=== PATIENT | female | born 1975 | race Caucasian/White ===

== ENCOUNTER 2016-04-03 15:28 | Emergency (ER) | payer BC ==
[~2016-04-03] VITALS: Ht 152.4 cm; Wt 79.0 kg
[~2016-04-03 15:28] MED LIST: ABIL5TAB6 PO; ALPR0.5T3 PO; DEXI30CA2 PO; ESZO3 PO; FAMO20TA2 PO; GABA600T PO; HYDR-3129 PO; METO50CR PO; MONT10TA2 PO; PRAZ2 PO; ROPI1TAB72 PO; VORT20TA PO
[2016-04-03 15:35] VITALS: BP 117/75; PULSE 87; RESP 16; TEMP 98.3; O2SAT 100
[2016-04-03] MEDS ORDERED: SODIUM CHLOR 0.9% 1000 ML INJ 1,000 ML IV ONE ×2 (15:54→17:00)
[2016-04-03] MEDS ORDERED: METOCLOPRAMIDE HCL 10 MG/2 ML VIAL IVP ONE (16:00)
[2016-04-03] MEDS ORDERED: SODIUM CHLORIDE 0.9% FLUSH 5 ML FLUSH IVF PRN (16:00)
[2016-04-03] MEDS ORDERED: DEXAMETHASONE SOD PHOS 20 MG/5 ML VIAL IV PUSH ONE (16:00)
[2016-04-03] MEDS ORDERED: KETOROLAC TROMETHAMINE 30 MG/ML (IVP) VIAL IV PUSH ONE (16:00)
[2016-04-03] MEDS ORDERED: FLUT50SP EACH NARE (16:16)
[2016-04-03] MEDS ORDERED: DICL1GEL7 TOPICAL (16:16)
[2016-04-03] MEDS ORDERED: METO50TA PO (16:16)
[2016-04-03] MEDS ORDERED: KETOC2%T TOPICAL (16:16)
[2016-04-03] MEDS ORDERED: PRAZ1CAP PO (16:16)
[2016-04-03] MEDS ORDERED: OMEP40CA2 PO (16:16)
[2016-04-03] MEDS ORDERED: BACL10TA PO (16:16)
[2016-04-03] MEDS ORDERED: AUGM875T PO (16:16)
[2016-04-03] MEDS ORDERED: MONT10TA4 PO (16:16)
[2016-04-03] MEDS ORDERED: HYDR-3115 PO (16:16)
[2016-04-03] MEDS ORDERED: ROPI1TAB72 PO (16:16)
[2016-04-03] MEDS ORDERED: ESZO3TAB4 PO (16:16)
[2016-04-03] MEDS ORDERED: MELO7.5T4 PO (16:16)
[2016-04-03] MEDS ORDERED: ALBUAER3 INH (16:16)
[2016-04-03] MEDS ORDERED: ALPR0.5T3 PO (16:16)
[2016-04-03] MEDS ORDERED: ADDE20 PO (16:16)
[2016-04-03] MEDS ORDERED: FLUO10CA5 PO (16:16)
[2016-04-03] MEDS ORDERED: GABA300C5 PO (16:16)
[2016-04-03] MEDS ORDERED: TRAZ100T4 PO (16:16)
[2016-04-03 16:17] VITALS: O2SAT 100
--- NOTE | 2016-04-03 16:17 | PD ---
HPI Chief Complaint: Headache Time Seen by Provider: 15:46 Travel History International Travel<30 days: No Contact w/Intl Traveler<30days: No Traveled to known affect area: No History of Present Illness HPI Patient is a 40-year-old female who presents to emergency room with multiple complaints. Patient reports that she has had a headache since May 19, 2008, reports that her headache has been worked up with MRIs and multiple imaging studies, reports that no one can tell her why she has a headache everyday. 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 Patient reports that she has exacerbation of a headache today, reports that the Vicodin did not help her, requests stronger pain medication at this time to help with her headache. Reports that her headache is typical for her headache exacerbations she has had in the past. Patient also reports that for the past 6 weeks, she has been sick. Patient reports that she has had cough and congestion, reports that her primary care doctor initially started her on a Z-Naveen, reports that the Z-Naveen didn't help her so she went to an urgent care center who put her on Augmentin. Patient reports that she has has complete full course of antibiotics, reports that she is still coughing and still feels congested. Patient with no fevers or chills at this time. Patient with no other sick contacts. Patient with no recent travels or trips. Patient also reporting that she is having increased nausea, vomiting and diarrhea for the past 6 weeks. Patient reports that she is unsure if her diarrhea started before or after her first course of antibiotics. Patient reports that she has had about 5-6 episodes of watery diarrhea per day. Patient denies any abdominal pain at this time. PFSH Past Medical History Hx Anticoagulant Therapy: No Arthritis: Yes (rheumatoid arthritis) Asthma: Yes Anxiety: Yes Depression: Yes Cancer: No Cardiovascular Problems: Yes (HTN) Diabetes: No Diminished Hearing: No Endocrine: No Genitourinary: No Hepatitis: No Hiatal Hernia: Yes (REPAIRED) Hypertension: Yes Immune Disorder: Yes (RA) Musculoskeletal: Yes (RA, NECK/ BACK ISSUES, FIBROMYALGIA) Neurologic: Yes (HEADACHES, TRANSIENT TRAVELING NUMBNESS) Psychiatric: Yes (DEPRESSION, ANXIETY, CLAUSTRAPHOBIA) Reproductive: No Respiratory: Yes (ASTHMA (YOUTH)) Thyroid Disease: No ?: Not Tubal Ligation: Yes Past Surgical History Abdominal Surgery: Yes (GASTRIC BYPASS) AICD: No Cholecystectomy: Yes Gynecologic Surgery: Yes (LAP TUBAL) Joint Replacement: No Pacemaker: No Other Surgery: Yes (EXPLORATORY LAP) Social History Alcohol Use: No Tobacco Use: No Substance Use: No Allergies-Medications (Allergen,Severity, Reaction): Coded Allergies: Levaquin (Unverified Allergy, Severe, Chest Pain, 04/03/16) Reported Meds & Prescriptions Reported Meds & Active Scripts Active Reported Prazosin (Prazosin HCl) 1 Mg Cap 6 Mg PO HS Diclofenac Topical 1% Gel 1 Applic TOPICAL QID Adderall (Amphetamine-Dextroamphetamine) 20 Mg Tab 20 Mg PO DAILY Avoid late evening doses. Space doses at least 4 to 6 hours if more than once/day dosing. Montelukast (Montelukast Sodium) 10 Mg Tab 10 Mg PO HS Nizoral Topical Shampoo (Ketoconazole) 2% Sham 1 Applic TOPICAL DAILY Apply to scalp Baclofen 10 Mg Tab 10 Mg PO BID Trazodone (Trazodone HCl) 100 Mg Tab 100 Mg PO HS Omeprazole 40 Mg Cap 40 Mg PO DAILY Metoprolol Tartrate 50 Mg Tab 50 Mg PO BID Meloxicam 7.5 Mg Tab 7.5 Mg PO DAILY Fluoxetine (Fluoxetine HCl) 10 Mg Cap 30 Mg PO DAILY Gabapentin 300 Mg Cap 900 Mg PO TID Fluticasone Nasal [place] 50 Mcg/Act Naspr 50 Mcg EACH NARE BID 50 mcg/spray Proair Hfa 8.5 GM Inh (Albuterol Sulfate) 90 Mcg/Act Aer 1 Puff INH Q4H PRN 108 mcg/actuation Requip (Ropinirole) 1 Mg Tab 1 Mg PO HS Augmentin (Amoxicillin-Clavulanate) 875-125 mg Tab 875 Mg PO BID not for use in CrCl <30 ml/min. Vicodin Hp (Hydrocodone-Acetaminophen) 10-300 Tab 1 Tab PO Q4H PRN Lunesta (Eszopiclone) 3 Mg Tab 6 Mg PO HS PRN Alprazolam 0.5 Mg Tab 0.5 Mg PO Q8H PRN [place] 10-325 mg (Hydrocodone-Acetaminophen 10-325 mg) Acetaminophen 325/10 Hydrocodone Tab 1 Tab PO Q4H PRN Brintellix (Vortioxetine HBr) 20 Mg Tab 1 Tab PO HS Singulair (Montelukast Sodium) 10 Mg Tab 10 Mg PO HS Famotidine 20 Mg Tab 20 Mg PO BID Requip 1 mg (Ropinirole HCl) 1 Mg Tab 1 Mg PO BID Prazosin Hcl (Prazosin HCl) 2 Mg Cap 6 Mg PO HS Metoprolol Succinate ER 50 mg (Metoprolol Succinate) 50 Mg Tab 1 Tab PO HS Gabapentin 600 Mg Tab 900 Mg PO HS Review of Systems General / Constitutional: No: Fever Eyes: No: Visual changes HENT: Positive: Headaches Cardiovascular: No: Chest Pain or Discomfort Respiratory: Positive: Cough, No: Shortness of Breath Gastrointestinal: Positive: Nausea, Vomiting, Diarrhea, No: Abdominal Pain Genitourinary: No: Dysuria Musculoskeletal: No: Pain Skin: No Rash Neurologic: No: Weakness Psychiatric: No: Depression Endocrine: No: Polydipsia Hematologic/Lymphatic: No: Easy Bruising Physical Exam Narrative GENERAL: nad, nontoxic SKIN: Warm and dry. HEAD: Atraumatic. Normocephalic. EYES: Pupils equal and round. No scleral icterus. No injection or drainage. ENT: No nasal bleeding or discharge. Mucous membranes pink and moist. NECK: Trachea midline. No JVD. CARDIOVASCULAR: Regular rate and rhythm. No murmur appreciated. RESPIRATORY: No accessory muscle use. Clear to auscultation. Breath sounds equal bilaterally. GASTROINTESTINAL: Abdomen soft, non-tender, nondistended. Hepatic and splenic margins not palpable. MUSCULOSKELETAL: No obvious deformities. No clubbing. No cyanosis. No edema. NEUROLOGICAL: Awake and alert. No obvious cranial nerve deficits. Motor grossly within normal limits. Normal speech. CN 2-12 with no obvious cn deficits PSYCHIATRIC: Appropriate mood and affect; insight and judgment normal. Data Data Last Documented VS Vital Signs Date Time Temp Pulse Resp B/P Pulse Ox O2 Delivery O2 Flow Rate FiO2 04/03/16 16:17 100 Room Air 04/03/16 15:35 98.3 87 16 117/75 Orders Complete Blood Count With Diff (04/03/16 15:54) Comprehensive Metabolic Panel (04/03/16 15:54) Prothrombin Time / Inr (Pt) (04/03/16 15:54) Act Partial Throm Time (Ptt) (04/03/16 15:54) Iv Access Insert/Monitor (04/03/16 15:54) Oximetry (04/03/16 15:54) Sodium Chloride 0.9% Flush (Ns Flush) (04/03/16 16:00) Metoclopramide Inj (Reglan Inj) (04/03/16 16:00) Sodium Chlor 0.9% 1000 Ml Inj (Ns 1000 M (04/03/16 15:54) Urinalysis - C+S If Indicated (04/03/16 15:54) Ed Urine Pregnancytest Poc (04/03/16 15:54) Dexamethasone Inj (Decadron Inj) (04/03/16 16:00) Ketorolac Inj (Toradol Inj) (04/03/16 16:00) C Diff Toxin Pcr (04/03/16 15:54) Chest, Single Ap (04/03/16 16:05) Sodium Chlor 0.9% 1000 Ml Inj (Ns 1000 M (04/03/16 17:00) Labs Laboratory Tests Test 04/03/16 15:35 White Blood Count 4.3 TH/MM3 Red Blood Count 3.73 MIL/MM3 Hemoglobin 12.3 GM/DL Hematocrit 37.2 % Mean Corpuscular Volume 99.9 FL Mean Corpuscular Hemoglobin 33.0 PG Mean Corpuscular Hemoglobin 33.0 % Concent Red Cell Distribution Width 14.2 % Platelet Count 228 TH/MM3 Mean Platelet Volume 8.7 FL Neutrophils (%) (Auto) 65.1 % Lymphocytes (%) (Auto) 21.3 % Monocytes (%) (Auto) 7.5 % Eosinophils (%) (Auto) 4.8 % Basophils (%) (Auto) 1.3 % Neutrophils # (Auto) 2.8 TH/MM3 Lymphocytes # (Auto) 0.9 TH/MM3 Monocytes # (Auto) 0.3 TH/MM3 Eosinophils # (Auto) 0.2 TH/MM3 Basophils # (Auto) 0.1 TH/MM3 CBC Comment DIFF FINAL Differential Comment Prothrombin Time 12.0 SEC Prothromb Time International 1.1 RATIO Ratio Activated Partial 26.9 SEC Thromboplast Time Urine Collection Type CLEAN CATCH Urine Color YELLOW Urine Turbidity CLEAR Urine pH 5.5 Urine Specific [place] GREATER THAN 1.030 Urine Protein TRACE mg/dL Urine Glucose (UA) NEG mg/dL Urine Ketones TRACE mg/dL Urine Occult Blood NEG Urine Nitrite NEG Urine Bilirubin NEG Urine Leukocyte Esterase NEG Urine WBC 0-2 /hpf Urine Squamous Epithelial 0-5 /hpf Cells Microscopic Urinalysis Comment CULT NOT INDICATED Sodium Level 142 MEQ/L Potassium Level 3.9 MEQ/L Chloride Level 110 MEQ/L Carbon Dioxide Level 24.0 MEQ/L Anion Gap 8 MEQ/L Blood Urea Nitrogen 17 MG/DL Creatinine 0.84 MG/DL Estimat Glomerular Filtration 76 ML/MIN Rate Random Glucose 99 MG/DL Calcium Level 8.4 MG/DL Total Bilirubin 0.3 MG/DL Aspartate Amino Transf 12 U/L (AST/SGOT) Alanine Aminotransferase 34 U/L (ALT/SGPT) Alkaline Phosphatase 83 U/L Total Protein 7.0 GM/DL Albumin 3.5 GM/DL MDM Medical Decision Making Medical Screen Exam Complete: Yes Emergency Medical Condition: Yes Interpretation(s) Vital Signs Date Time Temp Pulse Resp B/P Pulse Ox O2 Delivery O2 Flow Rate FiO2 04/03/16 15:35 98.3 87 16 117/75 100 Differential Diagnosis Migraine headache, pneumonia, C. difficile colitis, electrolyte abnormalities, gastritis, gastroenteritis, peptic ulcer disease, bronchitis Narrative Course Patient is a 40-year-old female who presents to emergency room with multiple complaints. 1) Patient reports that she has had a headache since May 19, 2008. Patient reports that she takes Vicodin 10 mg for her headaches which is prescribed by her painting supervisor. Patient reports that she continues to have a headache, reports that headache is a little worse today as she has been feeling nauseous and has been vomiting and has been having diarrhea for the past 6 weeks. Migraine cocktail ordered for patient. Patient with no cranial nerve deficits at this time, does not require any imaging of her brain as she has had similar headaches in the past. Patient reports that she has had a full workup in the past including MRI for brain for her symptoms which her studies were all benign 2) cough congestion for the past 6 weeks. Patient reports that for the past 6 weeks, she has had increased cough congestion and postnasal drip. Reports that she has been on a series of antibiotics, reports that she completed a Z-Naveen prescribed by her primary care doctor and then completed a course of Augmentin prescribed by urgent care center. Patient reports that she continues to have increased cough and congestion. With no fevers or chills. X-ray ordered to evaluate for possible pneumonia 3) patient with nausea vomiting and diarrhea for the past 6 weeks. Patient reports that she has had increased diarrhea, she thinks prior to starting her Z- Naveen, reports that she is unsure. Patient reports that she has around 5-6 episodes of diarrhea per day. Denies any abdominal pain at this time. Labs as well as IV fluids, nausea medications ordered. C. difficile culture also ordered for possible C. difficile colitis. With no abdominal pain at this time , will hydrate patient and monitor her. CBC WBC 4.3 Hemoglobin 12.3 Hematocrit 37.2 Platelets 223 BMP Sodium 145 Chloride 110 Potassium 3.9 Carbon dioxide 24 BUN 17 Creatinine 0.84 Chest x-ray: No acute findings UA with trace ketones, negative for leuk esterase, negative for nitrite Patient reevaluated, patient reports that she is feeling much better. Patient with near resolution of her headache at this time, denies nausea or vomiting. Denies soft, nontender, nondistended, no peritoneal signs. Reviewed all labs and studies with patient in detail. Discussed with patient signs and symptoms of when to return to the emergency room. Patient will follow-up with a primary care doctor as well as her specialist. Diagnosis Primary Impression: Chronic headache Qualified Code: R51 - Chronic intractable headache, unspecified headache type Additional Impressions: Nausea vomiting and diarrhea Chronic bronchitis Qualified Code: J41.0 - Simple chronic bronchitis Patient Instructions: General Instructions Additional Instructions: Please follow-up with your primary care doctor as soon as possible Please follow-up with all cultures from today Please make sure you maintain hydration and drink plenty of fluids Return to emergency room if symptoms progress or worsen Disposition: 01 DISCHARGE HOME Condition: Stable Margo Haque DO Apr 03, 2016 16:17
[2016-04-03 16:49] LABS: AUTOMATED NEUTROPHIL # 2.8 TH/MM3 (1.8-7.7); BASOPHIL # 0.1 TH/MM3 (0-0.2); BASOPHIL % 1.3 % (0.0-2.0); EOSINOPHIL # 0.2 TH/MM3 (0-0.4); EOSINOPHIL % 4.8 % (0.0-4.0); HEMATOCRIT 37.2 % (35.0-46.0); HEMO FLAGS DIFF FINAL; LYMPH % 21.3 % (9.0-44.0); LYMPHOCYTE # 0.9 TH/MM3 (1.0-4.8); MEAN CELL VOLUME 99.9 FL (80.0-100.0); MONO % 7.5 % (0.0-8.0); NEUT % 65.1 % (16.0-70.0); PLATELET COUNT 228 TH/MM3 (150-450); RED BLOOD COUNT 3.73 MIL/MM3 (4.00-5.30); RED CELL DISTRIBUTION WIDTH 14.2 % (11.6-17.2); WHITE BLOOD COUNT 4.3 TH/MM3 (4.0-11.0)
[2016-04-03 16:50] LABS: BLOOD, URINE NEG (NEG); GLUCOSE,URINE NEG (NEG); KETONE, URINE TRACE mg/dL (NEG); NITRITE,URINE NEG (NEG); PH, URINE 5.5 (5.0-8.5)
[2016-04-03 16:54] LABS: COMMENT (UR) CULT NOT INDICATED; CULTURE IF INDICATED CULT NOT INDICATED; METHOD OF COLLECTION CLEAN CATCH; SQUAMOUS EPITHELIAL CELL URINE 0-5 /hpf (0-5); URINE COLOR YELLOW (YELLW/STRAW); WBC, URINE 0-2 /hpf (0-5)
[2016-04-03 16:57] LABS: CHLORIDE 110 MEQ/L (98-107); POTASSIUM 3.9 MEQ/L (3.5-5.1); SODIUM (NA) 142 MEQ/L (136-145)
[2016-04-03 17:00] LABS: ANION GAP 8 MEQ/L (5-15)
[2016-04-03 17:01] LABS: BLOOD UREA NITROGEN 17 MG/DL (7-18)
[2016-04-03 17:02] LABS: APTT (PATIENT) 26.9 SEC (24.3-30.1); INTERNATIONAL NORMALIZED RATIO 1.1 RATIO
[2016-04-03 17:03] LABS: ALT (GPT) 34 U/L (10-53)
[2016-04-03 17:04] LABS: AST (GOT) 12 U/L (15-37); GLOMERULAR FILTRATION RATE 76 ML/MIN (>89)
[2016-04-03 17:05] LABS: TOTAL BILIRUBIN ADULT 0.3 MG/DL (0.2-1.0)
[2016-04-03 17:06] LABS: ALKALINE PHOSPHATASE 83 U/L (45-117)
--- NOTE | 2016-04-03 17:11 | RADHPO ---
EXAM DATE/TIME: 04/03/2016 16:42 [facility] COMPARISON: No previous studies available for comparison. INDICATIONS : Cough and congestion. Shortness of breath. MEDICAL HISTORY : None. SURGICAL HISTORY : None. ENCOUNTER: Initial ACUITY: 1 month PAIN SCORE: 3/10 LOCATION: Bilateral chest FINDINGS: A single view of the chest demonstrates the lungs to be symmetrically aerated without evidence of mas s, infiltrate or effusion. The cardiomediastinal contours are unremarkable. Osseous structures are intact. CONCLUSION: No acute disease. Dragan Peterson MD on April 03, 2016 at 17:09 Board Certified Radiologist. This report was verified electronically.
[2016-04-03 17:46] VITALS: BP 112/67; PULSE 68; RESP 15; O2SAT 100
[2016-04-03 17:53] VITALS: RESP 15
== END 2016-04-03 18:36 | disposition home or self-care (01) ==
LOC: PHED 15:28
DX: R51 Headache (principal); G89.29 Other chronic pain; R11.2 Nausea with vomiting, unspecified; R19.7 Diarrhea, unspecified; R41.0 Disorientation, unspecified; J45.909 Unspecified asthma, uncomplicated; I10 Essential (primary) hypertension
CPT/HCPCS: 71010; 80053; 81001; 84703; 85025; 85610; 85730; 96361; 96374; 96375; 99284; J1100; J1885; J2765; J7030

== ENCOUNTER 2016-04-06 09:08 | Emergency (ER) | payer BC ==
[~2016-04-06] VITALS: Ht 152.4 cm; Wt 81.7 kg
[~2016-04-06 09:08] MED LIST changes: +ADDE20 PO; +ALBUAER3 INH; +AUGM875T PO; +BACL10TA PO; +DICL1GEL7 TOPICAL; +ESZO3TAB4 PO; +FLUO10CA5 PO; +FLUT50SP EACH NARE; +GABA300C5 PO; +HYDR-3115 PO; +KETOC2%T TOPICAL; +MELO7.5T4 PO; +METO50TA PO; +MONT10TA4 PO; +OMEP40CA2 PO; +PRAZ1CAP PO; +TRAZ100T4 PO
[2016-04-06 09:19] VITALS: BP 143/75; PULSE 70; RESP 18; TEMP 97.9; O2SAT 100
[2016-04-06] MEDS ORDERED: FAMO20TA2 PO (09:41)
[2016-04-06] MEDS ORDERED: SODIUM CHLOR 0.9% 1000 ML INJ 1,000 ML IV SCH ×2 (09:54)
[2016-04-06] MEDS ORDERED: SODIUM CHLORIDE 0.9% FLUSH 5 ML FLUSH IVF PRN (10:00)
[2016-04-06] MEDS ORDERED: HYDROmorphone HCL PF 2 MG/ML VIAL IVS ONE (10:00)
[2016-04-06] MEDS ORDERED: ONDANSETRON HCL 4 MG/2 ML VIAL IVP ONE (10:00)
--- NOTE | 2016-04-06 10:03 | PD ---
HPI Chief Complaint: Abdominal Pain Time Seen by Provider: 09:30 Travel History International Travel<30 days: No Contact w/Intl Traveler<30days: No Traveled to known affect area: No History of Present Illness HPI This 40-year-old female complaining of diarrhea and bilateral flank pain. She says she hasn't felt well for about 7 weeks. She's been having some upper respiratory symptoms. She initially went to her primary care doctor and was given a prescription for Zithromax in mid February. She did not get any better and subsequently went to a walk-in clinic where she was given prescription for amoxicillin which she is due to finish tomorrow. She has been having diarrhea she says for the past week or so. She been using Imodium. She gives temporary relief. As the diarrhea has been very watery. She has a history of gastric bypass, cholecystectomy, adhesions and has been diagnosed with an ulcer. sHe has chronic pain and takes meloxicam and narcotics. He says he been having a headache. She has a history of frequent headaches. she was seen in the emergency department last Tuesday [facility] Past Medical History Hx Anticoagulant Therapy: No Arthritis: Yes (rheumatoid arthritis) Asthma: Yes Anxiety: Yes Depression: Yes Cancer: No Cardiovascular Problems: Yes (HTN) Diabetes: No Diminished Hearing: No Endocrine: No Gastrointestinal Disorders: Yes (N & V, BOWEL CHANGES, S/P GASTRIC BYPASS) Genitourinary: No Hepatitis: No Hiatal Hernia: Yes (REPAIRED) Hypertension: Yes Immune Disorder: Yes (RA) Musculoskeletal: Yes (RA, NECK/ BACK ISSUES, FIBROMYALGIA) Neurologic: Yes (HEADACHES, TRANSIENT TRAVELING NUMBNESS) Psychiatric: Yes (DEPRESSION, ANXIETY, CLAUSTRAPHOBIA) Reproductive: No Respiratory: Yes (ASTHMA (YOUTH)) Thyroid Disease: No Influenza Vaccination: No ?: Not LMP: LMP 03/21/2016 Tubal Ligation: Yes Past Surgical History Abdominal Surgery: Yes (GASTRIC BYPASS) AICD: No Cholecystectomy: Yes Gynecologic Surgery: Yes (LAP TUBAL) Joint Replacement: No Pacemaker: No Other Surgery: Yes (EXPLORATORY LAP) Social History Alcohol Use: No Tobacco Use: No Substance Use: No Allergies-Medications (Allergen,Severity, Reaction): Coded Allergies: Levaquin (Unverified Allergy, Severe, Chest Pain, 04/06/16) Reported Meds & Prescriptions Reported Meds & Active Scripts Active Reported Famotidine 20 Mg Tab 20 Mg PO BID Prazosin (Prazosin HCl) 1 Mg Cap 6 Mg PO HS Adderall (Amphetamine-Dextroamphetamine) 20 Mg Tab 20 Mg PO DAILY Avoid late evening doses. Space doses at least 4 to 6 hours if more than once/day dosing. Montelukast (Montelukast Sodium) 10 Mg Tab 10 Mg PO HS Nizoral Topical Shampoo (Ketoconazole) 2% Sham 1 Applic TOPICAL DAILY Apply to scalp Baclofen 10 Mg Tab 10 Mg PO BID Trazodone (Trazodone HCl) 100 Mg Tab 100 Mg PO HS Omeprazole 40 Mg Cap 40 Mg PO DAILY Metoprolol Tartrate 50 Mg Tab 50 Mg PO BID Meloxicam 7.5 Mg Tab 7.5 Mg PO DAILY Fluoxetine (Fluoxetine HCl) 10 Mg Cap 30 Mg PO DAILY Gabapentin 300 Mg Cap 900 Mg PO TID Fluticasone Nasal [place] 50 Mcg/Act Naspr 50 Mcg EACH NARE BID 50 mcg/spray Proair Hfa 8.5 GM Inh (Albuterol Sulfate) 90 Mcg/Act Aer 1 Puff INH Q4H PRN 108 mcg/actuation Requip (Ropinirole) 1 Mg Tab 1 Mg PO HS Augmentin (Amoxicillin-Clavulanate) 875-125 mg Tab 875 Mg PO BID not for use in CrCl <30 ml/min. Vicodin Hp (Hydrocodone-Acetaminophen) 10-300 Tab 1 Tab PO Q4H PRN Lunesta (Eszopiclone) 3 Mg Tab 6 Mg PO HS PRN Alprazolam 0.5 Mg Tab 0.5 Mg PO Q8H PRN Review of Systems General / Constitutional: No: Fever, Chills Eyes: No: Diploplia, Blurred Vision HENT: No: Headaches, Vertigo Cardiovascular: No: Chest Pain or Discomfort, Palpitations Respiratory: No: Cough, Shortness of Breath Gastrointestinal: Positive: Nausea, Diarrhea Genitourinary: No: Urgency, Frequency Musculoskeletal: No: Myalgias, Arthralgias Skin: No Rash, No Itching Neurologic: No: Weakness Endocrine: No: Heat Intolerance, Cold Intolerance Hematologic/Lymphatic: No: Easy Bruising Physical Exam Narrative GENERAL: Well-developed female SKIN: Warm and dry. HEAD: Atraumatic. Normocephalic. EYES: Pupils equal and round. No scleral icterus. No injection or drainage. ENT: No nasal bleeding or discharge. Mucous membranes pink and moist. NECK: Trachea midline. No JVD. CARDIOVASCULAR: Regular rate and rhythm. No murmur appreciated. RESPIRATORY: No accessory muscle use. Clear to auscultation. Breath sounds equal bilaterally. GASTROINTESTINAL: Abdomen soft, non-tender, nondistended. Hepatic and splenic margins not palpable. Bowel sounds are active MUSCULOSKELETAL: No obvious deformities. No clubbing. No cyanosis. No edema. NEUROLOGICAL: Awake and alert. No obvious cranial nerve deficits. Motor grossly within normal limits. Normal speech. PSYCHIATRIC: Appropriate mood and affect; insight and judgment normal. Data Data Last Documented VS Vital Signs Date Time Temp Pulse Resp B/P Pulse Ox O2 Delivery O2 Flow Rate FiO2 04/06/16 10:21 64 20 128/67 97 Room Air 04/06/16 09:19 97.9 Orders Complete Blood Count With Diff (04/06/16 09:54) Comprehensive Metabolic Panel (04/06/16 09:54) Lipase (04/06/16 09:54) Urinalysis - C+S If Indicated (04/06/16 09:54) Ct Abd/Pel W Iv Contrast(Rout) (04/06/16 09:54) Iv Access Insert/Monitor (04/06/16 09:54) Ecg Monitoring (04/06/16 09:54) Oximetry (04/06/16 09:54) Hydromorphone Pf Inj (Dilaudid Pf Inj) (04/06/16 10:00) Ondansetron Inj (Zofran Inj) (04/06/16 10:00) Sodium Chlor 0.9% 1000 Ml Inj (Ns 1000 M (04/06/16 09:54) Sodium Chlor 0.9% 1000 Ml Inj (Ns 1000 M (04/06/16 09:54) Sodium Chloride 0.9% Flush (Ns Flush) (04/06/16 10:00) Rotavirus Ag Detection (Stool) (04/06/16 09:54) C Diff Toxin Pcr (04/06/16 09:54) Oral Contrast - Adult (04/06/16 10:13) Diatrizoate Liq ( Gastroniko Liq) (04/06/16 10:36) Iohexol 350 Inj (Omnipaque 350 Inj) (04/06/16 11:54) Labs Laboratory Tests Test 04/06/16 10:07 White Blood Count 3.8 TH/MM3 Red Blood Count 3.44 MIL/MM3 Hemoglobin 11.5 GM/DL Hematocrit 35.0 % Mean Corpuscular Volume 101.7 FL Mean Corpuscular Hemoglobin 33.5 PG Mean Corpuscular Hemoglobin 32.9 % Concent Red Cell Distribution Width 15.2 % Platelet Count 205 TH/MM3 Mean Platelet Volume 8.4 FL Neutrophils (%) (Auto) 55.0 % Lymphocytes (%) (Auto) 35.4 % Monocytes (%) (Auto) 5.8 % Eosinophils (%) (Auto) 2.6 % Basophils (%) (Auto) 1.2 % Neutrophils # (Auto) 2.2 TH/MM3 Lymphocytes # (Auto) 1.3 TH/MM3 Monocytes # (Auto) 0.2 TH/MM3 Eosinophils # (Auto) 0.1 TH/MM3 Basophils # (Auto) 0.0 TH/MM3 CBC Comment DIFF FINAL Differential Comment Sodium Level 144 MEQ/L Potassium Level 3.5 MEQ/L Chloride Level 108 MEQ/L Carbon Dioxide Level 27.8 MEQ/L Anion Gap 8 MEQ/L Blood Urea Nitrogen 11 MG/DL Creatinine 0.66 MG/DL Estimat Glomerular Filtration 100 ML/MIN Rate Random Glucose 91 MG/DL Calcium Level 7.9 MG/DL Total Bilirubin 0.4 MG/DL Aspartate Amino Transf 15 U/L (AST/SGOT) Alanine Aminotransferase 22 U/L (ALT/SGPT) Alkaline Phosphatase 67 U/L Total Protein 6.1 GM/DL Albumin 3.0 GM/DL Lipase 159 U/L [facility] Medical Decision Making Medical Screen Exam Complete: Yes Emergency Medical Condition: Yes Medical Record Reviewed: Yes Differential Diagnosis Differential includes enteritis, C. difficile, colitis Narrative Course White count is normal. A CT scan was obtained and is negative. Patient has been unable to provide a stool sample. I'm going to treat her empirically with Flagyl enteritis for C. difficile. She is to follow-up with her own medical doctor Diagnosis Primary Impression: Enteritis Scripts Ondansetron Odt (Zofran Odt)4 Mg Tab4 Mg SL Q8HR PRN (Nausea/Vomiting) #12 TAB Ref 0 Prov:Jos Coker MD 04/06/16 Metronidazole (Flagyl)500 Mg Fap178 Mg PO TID #21 TAB Ref 0 Prov:Jos Coker MD 04/06/16 Disposition: 01 DISCHARGE HOME Condition: Stable Jos Coker MD Apr 06, 2016 10:03
[2016-04-06 10:07] VITALS: O2SAT 97
[2016-04-06 10:21] VITALS: BP 128/67; PULSE 64; RESP 20; O2SAT 97
[2016-04-06 10:28] LABS: CHLORIDE 108 MEQ/L (98-107); POTASSIUM 3.5 MEQ/L (3.5-5.1); SODIUM (NA) 144 MEQ/L (136-145)
[2016-04-06 10:29] LABS: AUTOMATED NEUTROPHIL # 2.2 TH/MM3 (1.8-7.7); BASOPHIL % 1.2 % (0.0-2.0); EOSINOPHIL # 0.1 TH/MM3 (0-0.4); EOSINOPHIL % 2.6 % (0.0-4.0); HEMO FLAGS DIFF FINAL; LYMPH % 35.4 % (9.0-44.0); LYMPHOCYTE # 1.3 TH/MM3 (1.0-4.8); MEAN CELL VOLUME 101.7 FL (80.0-100.0); MEAN CORPUSCULAR HEMOGLOBIN 33.5 PG (27.0-34.0); MEAN CORPUSCULAR HGB CONC 32.9 % (32.0-36.0); MONO % 5.8 % (0.0-8.0); PLATELET COUNT 205 TH/MM3 (150-450); RED BLOOD COUNT 3.44 MIL/MM3 (4.00-5.30); RED CELL DISTRIBUTION WIDTH 15.2 % (11.6-17.2); WHITE BLOOD COUNT 3.8 TH/MM3 (4.0-11.0)
[2016-04-06 10:32] LABS: ANION GAP 8 MEQ/L (5-15); BICARBONATE 27.8 MEQ/L (21.0-32.0); BLOOD UREA NITROGEN 11 MG/DL (7-18)
[2016-04-06 10:35] LABS: ALT (GPT) 22 U/L (10-53); AST (GOT) 15 U/L (15-37); GLOMERULAR FILTRATION RATE 100 ML/MIN (>89)
[2016-04-06 10:36] LABS: TOTAL BILIRUBIN ADULT 0.4 MG/DL (0.2-1.0)
[2016-04-06] MEDS ORDERED: DIATRIZOATE MEGLUM/DIATRIZOATE SOD 9 ML CUP ONE (10:36)
[2016-04-06 10:38] LABS: ALKALINE PHOSPHATASE 67 U/L (45-117)
[2016-04-06] MEDS ORDERED: IOHEXOL 350 MG/ML 10 ML VIAL (for RAD DIAG) IV ONE (11:54)
--- NOTE | 2016-04-06 12:11 | RADHPO ---
EXAM DATE/TIME: 04/06/2016 11:44 [facility] COMPARISON: No previous studies available for comparison. INDICATIONS : Bilateral flank pain and diarrhea for almost two months. IV CONTRAST: 85 cc Omnipaque 350 (iohexol) IV ORAL CONTRAST: Partial prescribed oral contrast ingested. RADIATION DOSE: 19.98 CTDIvol (mGy) MEDICAL HISTORY : Hypertension. SURGICAL HISTORY : Gastric bypass. Tubal ligation. ENCOUNTER: Initial ACUITY: 2 months PAIN SCALE: 4/10 LOCATION: Bilateral flank TECHNIQUE: Volumetric scanning of the abdomen and pelvis was performed. Using automated exposure control and ad justment of the mA and/or kV according to patient size, radiation dose was kept as low as reasonably achievable to obtain optimal diagnostic quality images. FINDINGS: LOWER LUNGS: Minimal left basilar atelectasis. LIVER: Homogeneous density without lesion. There is no dilation of the biliary tree. Cholecystectomy clips . SPLEEN: Normal size without lesion. PANCREAS: Within normal limits. KIDNEYS: Normal in size and shape. There is no mass, stone or hydronephrosis. ADRENAL GLANDS: Within normal limits. VASCULAR: There is no aortic aneurysm. BOWEL/MESENTERY: Gastric bypass. No bowel obstruction. There is no free intraperitoneal air or fluid. ABDOMINAL WALL: Within normal limits. RETROPERITONEUM: There is no lymphadenopathy. BLADDER: No wall thickening or mass. REPRODUCTIVE: Small amount of pelvic free fluid. INGUINAL: There is no lymphadenopathy or hernia. MUSCULOSKELETAL: Within normal limits for patient age. CONCLUSION: 1. Small amount of pelvic free fluid. 2. Status post cholecystectomy and gastric bypass. Richard Avitia MD on April 06, 2016 at 12:02 Board Certified Radiologist. This report was verified electronically.
[2016-04-06] MEDS ORDERED: METR-1 PO (12:33)
[2016-04-06] MEDS ORDERED: ZOFR4TAB3 SL (12:33)
[2016-04-06 12:54] VITALS: BP 116/60; PULSE 58; RESP 17; O2SAT 98
== END 2016-04-06 13:05 | disposition home or self-care (01) ==
LOC: PHED 09:08
DX: K52.9 Noninfective gastroenteritis and colitis, unspecified (principal); R51 Headache; I10 Essential (primary) hypertension; Z98.84 Bariatric surgery status; Z87.39 Personal history of other diseases of the musculoskeletal system and connective tissue; Z87.09 Personal history of other diseases of the respiratory system; Z86.59 Personal history of other mental and behavioral disorders; Z86.79 Personal history of other diseases of the circulatory system; Z87.19 Personal history of other diseases of the digestive system; Z86.2 Personal history of diseases of the blood and blood-forming organs and certain disorders involving the immune mechanism; Z86.69 Personal history of other diseases of the nervous system and sense organs
CPT/HCPCS: 74177; 80053; 83690; 85025; 96361; 96374; 96375; 99284; J1170; J2405; J7030; Q9963; Q9967

== ENCOUNTER 2016-06-03 04:32 | Emergency (ER) | payer BC ==
[~2016-06-03] VITALS: Ht 152.4 cm; Wt 82.0 kg
[~2016-06-03 04:32] MED LIST changes: -ABIL5TAB6 PO; -DEXI30CA2 PO; -DICL1GEL7 TOPICAL; -ESZO3 PO; -GABA600T PO; -HYDR-3129 PO; -METO50CR PO; +METR-1 PO; -MONT10TA2 PO; -PRAZ2 PO; -VORT20TA PO; +ZOFR4TAB3 SL
[2016-06-03 04:41] VITALS: BP 198/112; PULSE 70; RESP 18; TEMP 98.3; O2SAT 100
[2016-06-03 04:52] VITALS: BP 217/109; PULSE 66
--- NOTE | 2016-06-03 05:07 | PD ---
HPI Chief Complaint: Hypertension Time Seen by Provider: 04:44 Travel History International Travel<30 days: No Contact w/Intl Traveler<30days: No Traveled to known affect area: No History of Present Illness HPI The patient is a 40-year-old female that has a history of hypertension who states yesterday she had a global headache that was worse than her usual headache that she has had for 8 years and sweating and her pressure was elevated. She does have a history of anxiety. She denies any focal neurologic change, chest pain or shortness of breath. She denies any fever. PFSH Past Medical History Hx Anticoagulant Therapy: No Arthritis: Yes (rheumatoid arthritis) Asthma: Yes Anxiety: Yes Depression: Yes Cancer: No Cardiovascular Problems: Yes (HTN) Diabetes: No Diminished Hearing: No Endocrine: No Gastrointestinal Disorders: Yes (N & V, BOWEL CHANGES, S/P GASTRIC BYPASS) Genitourinary: No Hepatitis: No Hiatal Hernia: Yes (REPAIRED) Hypertension: Yes Immune Disorder: Yes (RA) Musculoskeletal: Yes (RA, NECK/ BACK ISSUES, FIBROMYALGIA) Neurologic: Yes (HEADACHES, TRANSIENT TRAVELING NUMBNESS) Psychiatric: Yes (DEPRESSION, ANXIETY, CLAUSTRAPHOBIA) Reproductive: No Respiratory: Yes (ASTHMA (YOUTH)) Thyroid Disease: No Influenza Vaccination: No ?: Not Tubal Ligation: Yes Past Surgical History Abdominal Surgery: Yes (GASTRIC BYPASS) AICD: No Cholecystectomy: Yes Gynecologic Surgery: Yes (LAP TUBAL) Joint Replacement: No Pacemaker: No Other Surgery: Yes (EXPLORATORY LAP) Social History Alcohol Use: No Tobacco Use: No Substance Use: No Allergies-Medications (Allergen,Severity, Reaction): Coded Allergies: Levaquin (Unverified Allergy, Severe, Chest Pain, 06/03/16) Reported Meds & Prescriptions Reported Meds & Active Scripts Active Reported Famotidine 20 Mg Tab 20 Mg PO BID Prazosin (Prazosin HCl) 1 Mg Cap 6 Mg PO HS Adderall (Amphetamine-Dextroamphetamine) 20 Mg Tab 20 Mg PO DAILY Avoid late evening doses. Space doses at least 4 to 6 hours if more than once/day dosing. Montelukast (Montelukast Sodium) 10 Mg Tab 10 Mg PO HS Baclofen 10 Mg Tab 10 Mg PO BID Trazodone (Trazodone HCl) 100 Mg Tab 100 Mg PO HS Omeprazole 40 Mg Cap 40 Mg PO DAILY Metoprolol Tartrate 50 Mg Tab 50 Mg PO BID Meloxicam 7.5 Mg Tab 7.5 Mg PO DAILY Fluoxetine (Fluoxetine HCl) 10 Mg Cap 30 Mg PO DAILY Gabapentin 300 Mg Cap 900 Mg PO TID Fluticasone Nasal [place] 50 Mcg/Act Naspr 50 Mcg EACH NARE BID 50 mcg/spray Proair Hfa 8.5 GM Inh (Albuterol Sulfate) 90 Mcg/Act Aer 1 Puff INH Q4H PRN 108 mcg/actuation Requip (Ropinirole) 1 Mg Tab 1 Mg PO HS Vicodin Hp (Hydrocodone-Acetaminophen) 10-300 Tab 1 Tab PO Q4H PRN Lunesta (Eszopiclone) 3 Mg Tab 6 Mg PO HS PRN Alprazolam 0.5 Mg Tab 0.5 Mg PO Q8H PRN Review of Systems Except as stated in HPI: all other systems reviewed are Neg Physical Exam Narrative GENERAL: The patient is alert, slightly obese, anxious appearing, oriented 3 in minimal apparent distress with her headache. Her vital signs show blood pressure 198/112 but are otherwise normal. SKIN: Focused skin assessment warm/dry. HEAD: Atraumatic. Normocephalic. EYES: Pupils equal and round. No scleral icterus. No injection or drainage. ENT: No nasal bleeding or discharge. Mucous membranes pink and moist. NECK: Trachea midline. No JVD. There is no meningismus present. CARDIOVASCULAR: Regular rate and rhythm. No murmur appreciated. RESPIRATORY: No accessory muscle use. Clear to auscultation. Breath sounds equal bilaterally. GASTROINTESTINAL: Abdomen soft, non-tender, nondistended. Hepatic and splenic margins not palpable. MUSCULOSKELETAL: No obvious deformities. No clubbing. No cyanosis. No edema. NEUROLOGICAL: Awake and alert. No obvious cranial nerve deficits. Motor grossly within normal limits. Normal speech. PSYCHIATRIC: The patient appears anxious; insight and judgment normal. Data Data Last Documented VS Vital Signs Date Time Temp Pulse Resp B/P Pulse Ox O2 Delivery O2 Flow Rate FiO2 06/03/16 05:38 161/85 06/03/16 05:30 81 100 06/03/16 05:01 Room Air 06/03/16 04:41 98.3 18 Orders Complete Blood Count With Diff (06/03/16 05:08) Basic Metabolic Panel (Bmp) (06/03/16 05:08) Ecg Monitoring (06/03/16 05:08) Iv Access Insert/Monitor (06/03/16 05:08) Oximetry (06/03/16 05:08) Sodium Chloride 0.9% Flush (Ns Flush) (06/03/16 05:15) Lorazepam Inj (Ativan Inj) (06/03/16 05:15) Hydralazine Inj (Apresoline Inj) (06/03/16 05:15) Troponin I (06/03/16 05:00) Labs Laboratory Tests Test 06/03/16 05:00 White Blood Count 7.4 TH/MM3 Red Blood Count 3.83 MIL/MM3 Hemoglobin 12.9 GM/DL Hematocrit 38.1 % Mean Corpuscular Volume 99.5 FL Mean Corpuscular Hemoglobin 33.5 PG Mean Corpuscular Hemoglobin 33.7 % Concent Red Cell Distribution Width 12.3 % Platelet Count 286 TH/MM3 Mean Platelet Volume 9.4 FL Neutrophils (%) (Auto) 50.7 % Lymphocytes (%) (Auto) 31.7 % Monocytes (%) (Auto) 9.6 % Eosinophils (%) (Auto) 7.2 % Basophils (%) (Auto) 0.8 % Neutrophils # (Auto) 3.7 TH/MM3 Lymphocytes # (Auto) 2.4 TH/MM3 Monocytes # (Auto) 0.7 TH/MM3 Eosinophils # (Auto) 0.5 TH/MM3 Basophils # (Auto) 0.1 TH/MM3 CBC Comment DIFF FINAL Differential Comment Sodium Level 136 MEQ/L Potassium Level 4.0 MEQ/L Chloride Level 98 MEQ/L Carbon Dioxide Level 30.5 MEQ/L Anion Gap 8 MEQ/L Blood Urea Nitrogen 15 MG/DL Creatinine 0.80 MG/DL Estimat Glomerular Filtration 80 ML/MIN Rate Random Glucose 110 MG/DL Calcium Level 8.7 MG/DL MDM Medical Decision Making Medical Screen Exam Complete: Yes Emergency Medical Condition: Yes Medical Record Reviewed: Yes Differential Diagnosis Anxiety reaction, blood pressure poor control, hypertensive headache, electrolyte disorder Narrative Course It is now 0544 and the blood pressure is 161/85. The patient still has her headache, she has had a headache for 8 years. Impression: Blood pressure poor control versus anxiety related blood pressure elevation. Diagnosis Primary Impression: Hypertension Additional Impression: Chronic anxiety Additional Instructions: As we discussed, follow-up with her primary care physician to adjust your blood pressure. Disposition: 01 DISCHARGE HOME Condition: Stable Nathaniel Silva MD Jun 03, 2016 05:07
[2016-06-03] MEDS ORDERED: hydrALAZINE HCL 20 MG/ML VIAL IV PUSH ONE (05:15)
[2016-06-03] MEDS ORDERED: LORazepam 2 MG/ML VIAL IV PUSH ONE (05:15)
[2016-06-03] MEDS ORDERED: SODIUM CHLORIDE 0.9% FLUSH 10 ML FLUSH IVF PRN (05:15)
[2016-06-03 05:19] LABS: AUTOMATED NEUTROPHIL # 3.7 TH/MM3 (1.8-7.7); BASOPHIL # 0.1 TH/MM3 (0-0.2); BASOPHIL % 0.8 % (0.0-2.0); EOSINOPHIL # 0.5 TH/MM3 (0-0.4); EOSINOPHIL % 7.2 % (0.0-4.0); HEMATOCRIT 38.1 % (35.0-46.0); HEMO FLAGS DIFF FINAL; LYMPH % 31.7 % (9.0-44.0); LYMPHOCYTE # 2.4 TH/MM3 (1.0-4.8); MEAN CELL VOLUME 99.5 FL (80.0-100.0); MEAN CORPUSCULAR HEMOGLOBIN 33.5 PG (27.0-34.0); MEAN CORPUSCULAR HGB CONC 33.7 % (32.0-36.0); MONO % 9.6 % (0.0-8.0); NEUT % 50.7 % (16.0-70.0); PLATELET COUNT 286 TH/MM3 (150-450); RED BLOOD COUNT 3.83 MIL/MM3 (4.00-5.30); RED CELL DISTRIBUTION WIDTH 12.3 % (11.6-17.2); WHITE BLOOD COUNT 7.4 TH/MM3 (4.0-11.0)
[2016-06-03 05:26] LABS: CHLORIDE 98 MEQ/L (98-107); SODIUM (NA) 136 MEQ/L (136-145)
[2016-06-03 05:29] LABS: ANION GAP 8 MEQ/L (5-15); BICARBONATE 30.5 MEQ/L (21.0-32.0); BLOOD UREA NITROGEN 15 MG/DL (7-18)
[2016-06-03 05:30] VITALS: BP 198/98; PULSE 81; O2SAT 100
[2016-06-03 05:33] LABS: GLOMERULAR FILTRATION RATE 80 ML/MIN (>89)
[2016-06-03 05:38] VITALS: BP 161/85
== END 2016-06-03 06:16 | disposition home or self-care (01) ==
LOC: PHED 04:32
DX: I10 Essential (primary) hypertension (principal); F41.9 Anxiety disorder, unspecified; R51 Headache; J45.909 Unspecified asthma, uncomplicated; Z98.84 Bariatric surgery status; M79.7 Fibromyalgia
CPT/HCPCS: 80048; 84484; 85025; 96374; 96375; 99284; J0360; J2060

== ENCOUNTER 2016-07-04 18:26 | Emergency (ER) | payer BC ==
[~2016-07-04] VITALS: Ht 152.4 cm; Wt 81.4 kg
[2016-07-04] VITALS (7 sets, daily range): BP systolic 143–204; BP diastolic 80–108; PULSE 56–86; RESP 16–20; TEMP 98.4; O2SAT 98–100
[~2016-07-04 18:26] MED LIST changes: -AUGM875T PO; -KETOC2%T TOPICAL; -METR-1 PO; -ZOFR4TAB3 SL
[2016-07-04] MEDS ORDERED: hydrALAZINE HCL 20 MG/ML VIAL IV PUSH ONE (18:45)
[2016-07-04] MEDS ORDERED: SODIUM CHLORIDE 0.9% FLUSH 10 ML FLUSH IVF PRN (18:45)
--- NOTE | 2016-07-04 18:49 | PD ---
HPI Chief Complaint: Chest Pain Time Seen by Provider: 18:38 Travel History International Travel<30 days: No Contact w/Intl Traveler<30days: No Traveled to known affect area: No History of Present Illness HPI Patient is a 40-year-old female with history of chronic pain, fibromyalgia, rheumatoid arthritis, chronic daily headache, HTN who presents the emergency department with complaint of high blood pressure and chest pain. Patient states that she was recently started on 3 new medications - losartan/HCTZ, amlodipine, and medical marijuana. Patient states that these have as of late been controlling her blood pressure and pain in addition to the [place] 10/325 # 120 that she gets monthly. Patient states that today her blood pressure has been elevated in the 180s systolic. Patient states that this made her anxious. She's had a some associated substernal chest pressure, midline that radiates somewhat to the back. Pain is moderate, pressure. No associated shortness of breath, lightheadedness. She has a chronic daily headache and have this presently, but this is not any worse than it is at baseline. Patient mentions that she recently had an MRI of her hip that had a lytic lesion that was concerning for myeloma versus metastatic lesion versus enchondroma and she is scheduled to have a bone scan for further evaluation. PFSH Past Medical History Hx Anticoagulant Therapy: No Arthritis: Yes (rheumatoid arthritis) Asthma: Yes Anxiety: Yes Depression: Yes Cancer: No Cardiovascular Problems: Yes (HTN) Diabetes: No Diminished Hearing: No Endocrine: No Gastrointestinal Disorders: Yes (N & V, BOWEL CHANGES, S/P GASTRIC BYPASS) Genitourinary: No Hepatitis: No Hiatal Hernia: Yes (REPAIRED) Hypertension: Yes Immune Disorder: Yes (RA) Musculoskeletal: Yes (RA, NECK/ BACK ISSUES, FIBROMYALGIA) Neurologic: Yes (HEADACHES, TRANSIENT TRAVELING NUMBNESS) Psychiatric: Yes (DEPRESSION, ANXIETY, CLAUSTRAPHOBIA) Reproductive: No Respiratory: Yes (ASTHMA (YOUTH)) Thyroid Disease: No Tubal Ligation: Yes Past Surgical History Abdominal Surgery: Yes (GASTRIC BYPASS) AICD: No Cholecystectomy: Yes Gynecologic Surgery: Yes (LAP TUBAL) Joint Replacement: No Pacemaker: No Other Surgery: Yes (EXPLORATORY LAP) Social History Alcohol Use: No Tobacco Use: No Substance Use: No Allergies-Medications (Allergen,Severity, Reaction): Coded Allergies: Levaquin (Unverified Allergy, Severe, Chest Pain, 07/04/16) Reported Meds & Prescriptions Reported Meds & Active Scripts Active Reported Famotidine 20 Mg Tab 20 Mg PO BID Prazosin (Prazosin HCl) 1 Mg Cap 6 Mg PO HS Adderall (Amphetamine-Dextroamphetamine) 20 Mg Tab 20 Mg PO DAILY Avoid late evening doses. Space doses at least 4 to 6 hours if more than once/day dosing. Montelukast (Montelukast Sodium) 10 Mg Tab 10 Mg PO HS Baclofen 10 Mg Tab 10 Mg PO BID Trazodone (Trazodone HCl) 100 Mg Tab 100 Mg PO HS Omeprazole 40 Mg Cap 40 Mg PO DAILY Metoprolol Tartrate 50 Mg Tab 50 Mg PO BID Meloxicam 7.5 Mg Tab 7.5 Mg PO DAILY Fluoxetine (Fluoxetine HCl) 10 Mg Cap 30 Mg PO DAILY Gabapentin 300 Mg Cap 900 Mg PO TID Fluticasone Nasal [place] 50 Mcg/Act Naspr 50 Mcg EACH NARE BID 50 mcg/spray Proair Hfa 8.5 GM Inh (Albuterol Sulfate) 90 Mcg/Act Aer 1 Puff INH Q4H PRN 108 mcg/actuation Requip (Ropinirole) 1 Mg Tab 1 Mg PO HS Vicodin Hp (Hydrocodone-Acetaminophen) 10-300 Tab 1 Tab PO Q4H PRN Lunesta (Eszopiclone) 3 Mg Tab 6 Mg PO HS PRN Alprazolam 0.5 Mg Tab 0.5 Mg PO Q8H PRN Review of Systems Except as stated in HPI: all other systems reviewed are Neg Physical Exam Narrative GENERAL: Well-appearing female in no acute distress SKIN: Focused skin assessment warm/dry. HEAD: Normocephalic. EYES: Pupils equal and round. No scleral icterus. No injection or drainage. ENT: No nasal bleeding or discharge. Mucous membranes pink and moist. NECK: Supple CARDIOVASCULAR: Bradycardic with heart rate in the 50s to 60s, regular rhythm. No murmur appreciated. Hypertensive RESPIRATORY: No accessory muscle use. Clear to auscultation. Breath sounds equal bilaterally. GASTROINTESTINAL: Morbidly obese MUSCULOSKELETAL: No obvious deformities. No edema. NEUROLOGICAL: Awake and alert. No obvious cranial nerve deficits. Motor grossly within normal limits. Normal speech. PSYCHIATRIC: Appropriate mood and affect; insight and judgment normal. Data Data Last Documented VS Vital Signs Date Time Temp Pulse Resp B/P Pulse Ox O2 Delivery O2 Flow Rate FiO2 07/04/16 18:41 18 07/04/16 18:29 98.4 60 186/100 100 Orders Electrocardiogram (07/04/16 18:38) Basic Metabolic Panel (Bmp) (07/04/16 18:44) Ckmb (Isoenzyme) Profile (07/04/16 18:44) Complete Blood Count With Diff (07/04/16 18:44) D-Dimer (07/04/16 18:44) Magnesium (Mg) (07/04/16 18:44) Prothrombin Time / Inr (Pt) (07/04/16 18:44) Act Partial Throm Time (Ptt) (07/04/16 18:44) Troponin I (07/04/16 18:44) Chest, Single Ap (07/04/16:44) Ecg Monitoring (07/04/16 18:44) Bilateral Bp Monitoring (07/04/16 18:44) Iv Access Insert/Monitor (07/04/16 18:44) Oximetry (07/04/16:44) Oxygen Administration (07/04/16 18:44) Sodium Chloride 0.9% Flush (Ns Flush) (07/04/16 18:45) Hydralazine Inj (Apresoline Inj) (07/04/16 18:45) MDM Medical Decision Making Medical Screen Exam Complete: Yes Emergency Medical Condition: Yes Medical Record Reviewed: Yes Differential Diagnosis 40-year-old female with history of chronic pain, fibromyalgia, rheumatoid arthritis, chronic daily headache, HTN who presents the emergency department with complaint of high blood pressure and chest pain. Differential includes hypertension, accelerated hypertension, hypertensive emergency, anxiety, ACS, and less likely dissection. With this questionable history of recent lytic lesion PE is on the differential though less likely given her description of her symptoms. With her myriad of complaints, chronic opioid use, medical marijuana certainly concern for drug-seeking behavior. Narrative Course Patient placed on monitor, IV established and blood obtained. A twelve-lead EKG shows sinus bradycardia, rate [address] or T-wave abnormalities and normal intervals. Given 20 Motrin hydralazine for hypertension. Chest x- ray, CBC, BMP, magnesium, CK-MB, troponin, d-dimer and coags were obtained. The results of the studies are pending at the time this dictation and patient signed out to oncoming provider at 1900 awaiting results of the above. Imelda Kate MD July 04, 2016 18:49
[2016-07-04] MEDS ORDERED: AMLO10TA2 PO (18:50)
[2016-07-04] MEDS ORDERED: LOSA100T2 PO (18:50)
--- NOTE | 2016-07-04 19:10 | RADHPO ---
EXAM DATE/TIME: 07/04/2016 18:56 [facility] COMPARISON: No previous studies available for comparison. INDICATIONS : Chest pain MEDICAL HISTORY : None. SURGICAL HISTORY : None. ENCOUNTER: Initial ACUITY: 1 day PAIN SCORE: 5/10 LOCATION: Bilateral chest FINDINGS: A single view of the chest demonstrates the lungs to be symmetrically aerated without evidence of mas s, infiltrate or effusion. The cardiomediastinal contours are unremarkable. Osseous structures are intact. CONCLUSION: No evidence of acute cardiopulmonary disease. Giorgi Vale MD on July 04, 2016 at 19:08 Board Certified Radiologist. This report was verified electronically.
[2016-07-04 19:11] LABS: AUTOMATED NEUTROPHIL # 5.6 TH/MM3 (1.8-7.7); BASOPHIL # 0.1 TH/MM3 (0-0.2); BASOPHIL % 1.9 % (0.0-2.0); EOSINOPHIL # 0.1 TH/MM3 (0-0.4); HEMATOCRIT 36.9 % (35.0-46.0); HEMO FLAGS DIFF FINAL; LYMPH % 17.6 % (9.0-44.0); LYMPHOCYTE # 1.3 TH/MM3 (1.0-4.8); MEAN CELL VOLUME 99.6 FL (80.0-100.0); MEAN CORPUSCULAR HEMOGLOBIN 33.1 PG (27.0-34.0); MEAN CORPUSCULAR HGB CONC 33.3 % (32.0-36.0); NEUT % 72.5 % (16.0-70.0); PLATELET COUNT 286 TH/MM3 (150-450); RED CELL DISTRIBUTION WIDTH 12.5 % (11.6-17.2); WHITE BLOOD COUNT 7.5 TH/MM3 (4.0-11.0)
[2016-07-04 19:21] LABS: CHLORIDE 103 MEQ/L (98-107); POTASSIUM 4.2 MEQ/L (3.5-5.1); SODIUM (NA) 137 MEQ/L (136-145)
[2016-07-04 19:24] LABS: ANION GAP 5 MEQ/L (5-15); BICARBONATE 29.2 MEQ/L (21.0-32.0); BLOOD UREA NITROGEN 16 MG/DL (7-18); MAGNESIUM 2.1 MG/DL (1.5-2.5)
[2016-07-04 19:27] LABS: GLOMERULAR FILTRATION RATE 74 ML/MIN (>89)
[2016-07-04 19:28] LABS: PROTHROMBIN TIME - PATIENT 11.4 SEC (9.8-11.6)
[2016-07-04 19:34] LABS: CREATINE KINASE 86 U/L (26-192)
[2016-07-04] MEDS ORDERED: ACETAMINOPHEN 325 MG TAB PO ONE (20:00)
--- NOTE | 2016-07-04 21:31 | PD ---
Physical Exam Date Seen by Provider: July 04, 2016 Time Seen by Provider: 19:00 Narrative Patient signed out to me at [address] Uribe, please see previous notes for further details. Patient is here for elevated blood pressure, chest discomfort , with history of chronic hypertension on multiple medications. Initial EKG was unremarkable. Patient had been given hydralazine for her blood pressure. Laboratory Tests Test 07/04/16 07/04/16 19:00 20:42 Red Blood Count 3.70 MIL/MM3 (4.00-5.30) Neutrophils (%) (Auto) 72.5 % (16.0-70.0) Estimat Glomerular Filtration 74 ML/MIN (>89) Rate Random Glucose 137 MG/DL (74-106) Troponin I LESS THAN 0.02 LESS THAN 0.02 NG/ML NG/ML (0.02-0.05) (0.02-0.05) Last 24 hours Impressions Chest X-Ray 07/04/16 1844 Signed Impressions: Service Date/Time: Monday, July 04, 2016 18:56 - CONCLUSION: No evidence of acute cardiopulmonary disease. Giorgi Vale MD Chest x-ray and cardiac workup was initially unremarkable. Initial set of troponins were negative. At this point, considering patient's risk factors, I have offered to admit the patient for further evaluation of her heart. She is declining at this time stating that she does not have child care counselor, and a second set of cardiac enzymes were ordered which were also negative. Her d-dimer was negative. Patient's blood pressure is much improved after hydralazine. At this point, my plan would be to release the patient with follow-up to primary care physician and a head of human resources for further evaluation of chest discomforts. Return for any worsening in symptoms as necessary. The plan has been discussed with her and she states understanding. Data Data Last Documented VS Vital Signs Date Time Temp Pulse Resp B/P Pulse Ox O2 Delivery O2 Flow Rate FiO2 07/04/16 20:39 84 20 143/84 98 07/04/16 18:46 Room Air 07/04/16 18:29 98.4 Orders Electrocardiogram (07/04/16 18:38) Basic Metabolic Panel (Bmp) (07/04/16 18:44) Ckmb (Isoenzyme) Profile (07/04/16 18:44) Complete Blood Count With Diff (5/21/17 18:44) D-Dimer (07/04/16 18:44) Magnesium (Mg) (07/04/16 18:44) Prothrombin Time / Inr (Pt) (07/04/16 18:44) Act Partial Throm Time (Ptt) (07/04/16 18:44) Troponin I (07/04/16 18:44) Chest, Single Ap (07/04/16 18:44) Ecg Monitoring (07/04/16 18:44) Bilateral Bp Monitoring (07/04/16 18:44) Iv Access Insert/Monitor (07/04/16 18:44) Oximetry (07/04/16 18:44) Oxygen Administration (07/04/16 18:44) Sodium Chloride 0.9% Flush (Ns Flush) (07/04/16 18:45) Hydralazine Inj (Apresoline Inj) (07/04/16 18:45) Troponin I (07/04/16 20:43) Acetaminophen (Tylenol) (07/04/16 20:00) Labs Laboratory Tests Test 07/04/16 07/04/16 19:00 20:42 White Blood Count 7.5 TH/MM3 Red Blood Count 3.70 MIL/MM3 Hemoglobin 12.3 GM/DL Hematocrit 36.9 % Mean Corpuscular Volume 99.6 FL Mean Corpuscular Hemoglobin 33.1 PG Mean Corpuscular Hemoglobin 33.3 % Concent Red Cell Distribution Width 12.5 % Platelet Count 286 TH/MM3 Mean Platelet Volume 8.6 FL Neutrophils (%) (Auto) 72.5 % Lymphocytes (%) (Auto) 17.6 % Monocytes (%) (Auto) 6.0 % Eosinophils (%) (Auto) 2.0 % Basophils (%) (Auto) 1.9 % Neutrophils # (Auto) 5.6 TH/MM3 Lymphocytes # (Auto) 1.3 TH/MM3 Monocytes # (Auto) 0.4 TH/MM3 Eosinophils # (Auto) 0.1 TH/MM3 Basophils # (Auto) 0.1 TH/MM3 CBC Comment DIFF FINAL Differential Comment Prothrombin Time 11.4 SEC Prothromb Time International 1.0 RATIO Ratio Activated Partial 26.0 SEC Thromboplast Time D-Dimer Quantitative (PE/DVT) 0.21 MG/L FEU Sodium Level 137 MEQ/L Potassium Level 4.2 MEQ/L Chloride Level 103 MEQ/L Carbon Dioxide Level 29.2 MEQ/L Anion Gap 5 MEQ/L Blood Urea Nitrogen 16 MG/DL Creatinine 0.86 MG/DL Estimat Glomerular Filtration 74 ML/MIN Rate Random Glucose 137 MG/DL Calcium Level 8.5 MG/DL Magnesium Level 2.1 MG/DL Total Creatine Kinase 86 U/L Troponin I LESS THAN 0.02 LESS THAN 0.02 NG/ML NG/ML [facility] Medical Record Reviewed: Yes Supervised Visit with JENNIFER: No Diagnosis Primary Impression: Chest pain Additional Impression: Hypertension Disposition: 01 DISCHARGE HOME Condition: Stable Jose Antonio Rico MD July 04, 2016 21:31
--- NOTE | 2016-07-05 13:14 | EKG ---
Date Performed: 07/04/2016 Time Performed: 18:36:00 PTAGE: 40 years EKG: Sinus bradycardia. Normal ECG except for rate Compared to prior tracing no significant gisselle kent PREVIOUS TRACING 12/25/2013 06.16.38 DOCTOR: Parish Edwards Interpretating Date/Time 07/05/2016 13:12:39
== END 2016-07-04 22:10 | disposition home or self-care (01) ==
LOC: PHED 18:26
DX: R07.9 Chest pain, unspecified (principal); I10 Essential (primary) hypertension; R00.1 Bradycardia, unspecified; M79.7 Fibromyalgia; M06.9 Rheumatoid arthritis, unspecified; Z98.84 Bariatric surgery status
CPT/HCPCS: 71010; 80048; 82550; 83735; 84484; 85025; 85379; 85610; 85730; 93005; 96374; 99285; J0360

== ENCOUNTER 2016-08-01 12:37 | Inpatient (IN) | payer BC ==
[2016-08-01] VITALS (8 sets, daily range): BP systolic 92–110; BP diastolic 50–60; PULSE 69–88; RESP 18–20; TEMP 77.6–98.2; O2SAT 95–99
[~2016-08-01] VITALS: Ht 160 cm; Wt 94.7 kg
[~2016-08-01 12:37] MED LIST changes: +AMLO10TA2 PO; +LOSA100T2 PO
[2016-08-01] MEDS ORDERED: SODIUM CHLOR 0.9% 1000 ML INJ 1,000 ML IV ONE ×2 (12:43→13:30)
[2016-08-01] MEDS ORDERED: TRAZ100T6 PO (12:53)
[2016-08-01] MEDS ORDERED: FLUO60TA PO (12:53)
[2016-08-01] MEDS ORDERED: ESZO1TAB PO (12:53)
[2016-08-01 12:56] LABS: AUTOMATED NEUTROPHIL # 8.4 TH/MM3 (1.8-7.7); BASOPHIL # 0.2 TH/MM3 (0-0.2); BASOPHIL % 2.3 % (0.0-2.0); EOSINOPHIL # 0.2 TH/MM3 (0-0.4); EOSINOPHIL % 1.9 % (0.0-4.0); HEMATOCRIT 34.8 % (35.0-46.0); HEMO FLAGS DIFF FINAL; LYMPH % 7.6 % (9.0-44.0); LYMPHOCYTE # 0.8 TH/MM3 (1.0-4.8); MEAN CELL VOLUME 98.2 FL (80.0-100.0); MEAN CORPUSCULAR HEMOGLOBIN 33.8 PG (27.0-34.0); MEAN CORPUSCULAR HGB CONC 34.4 % (32.0-36.0); MONO % 3.9 % (0.0-8.0); NEUT % 84.3 % (16.0-70.0); PLATELET COUNT 182 TH/MM3 (150-450); RED BLOOD COUNT 3.54 MIL/MM3 (4.00-5.30); RED CELL DISTRIBUTION WIDTH 12.7 % (11.6-17.2)
--- NOTE | 2016-08-01 13:00 | PD ---
HPI Chief Complaint: Stroke Alert Time Seen by Provider: 12:43 Travel History International Travel<30 days: No Contact w/Intl Traveler<30days: No Traveled to known affect area: No History of Present Illness HPI This 40-year-old female is complaining of weakness and numbness on the right side of her body. Her says that she woke up with this weakness and numbness around 11:00 this morning. She occasionally does wake up and complains of trouble moving her legs. She has been having a headache for 8 years. She has a history of restless leg syndrome and hypertension. She sees Dr. Elkins. She uses medical marijuana PFS Past Medical History Hx Anticoagulant Therapy: No Arthritis: Yes (rheumatoid arthritis) Asthma: Yes Anxiety: Yes Depression: Yes Cancer: No Cardiovascular Problems: Yes (HTN) Diabetes: No Diminished Hearing: No Endocrine: No Gastrointestinal Disorders: Yes (N & V, BOWEL CHANGES, S/P GASTRIC BYPASS) Genitourinary: No Hepatitis: No Hiatal Hernia: Yes (REPAIRED) Hypertension: Yes Immune Disorder: Yes (RA) Musculoskeletal: Yes (RA, NECK/ BACK ISSUES, FIBROMYALGIA) Neurologic: Yes (HEADACHES, TRANSIENT TRAVELING NUMBNESS) Psychiatric: Yes (DEPRESSION, ANXIETY, CLAUSTRAPHOBIA) Reproductive: No Respiratory: Yes (ASTHMA (YOUTH)) Thyroid Disease: No Tubal Ligation: Yes Past Surgical History Abdominal Surgery: Yes (GASTRIC BYPASS) AICD: No Cholecystectomy: Yes Gynecologic Surgery: Yes (LAP TUBAL) Joint Replacement: No Pacemaker: No Other Surgery: Yes (EXPLORATORY LAP) Social History Alcohol Use: No Tobacco Use: No Substance Use: Yes (marijuana) Allergies-Medications (Allergen,Severity, Reaction): Coded Allergies: Levaquin (Unverified Allergy, Severe, Chest Pain, 08/01/16) Reported Meds & Prescriptions Reported Meds & Active Scripts Active Reported Fluoxetine (Fluoxetine HCl) 60 Mg Tab 30 Mg PO DAILY Lunesta (Eszopiclone) 2 Mg Tab 6 Mg PO HS PRN Trazodone (Trazodone HCl) 100 Mg Tablet 100 Mg PO HS Amlodipine (Amlodipine Besylate) 10 Mg Tab 10 Mg PO DAILY Losartan-Hydrochlorothiazide 100-25 Mg Tab 1 Tab PO DAILY Famotidine 20 Mg Tab 20 Mg PO BID Prazosin (Prazosin HCl) 1 Mg Cap 6 Mg PO HS Adderall (Amphetamine-Dextroamphetamine) 20 Mg Tab 20 Mg PO DAILY Avoid late evening doses. Space doses at least 4 to 6 hours if more than once/day dosing. Montelukast (Montelukast Sodium) 10 Mg Tab 10 Mg PO HS Baclofen 10 Mg Tab 10 Mg PO BID Omeprazole 40 Mg Cap 40 Mg PO DAILY Metoprolol Tartrate 50 Mg Tab 50 Mg PO BID Meloxicam 7.5 Mg Tab 7.5 Mg PO DAILY Gabapentin 300 Mg Cap 900 Mg PO TID Fluticasone Nasal [place] 50 Mcg/Act Naspr 50 Mcg EACH NARE BID 50 mcg/spray Proair Hfa 8.5 GM Inh (Albuterol Sulfate) 90 Mcg/Act Aer 1 Puff INH Q4H PRN 108 mcg/actuation Requip (Ropinirole) 1 Mg Tab 1 Mg PO HS Vicodin Hp (Hydrocodone-Acetaminophen) 10-300 Tab 1 Tab PO Q4H PRN Alprazolam 0.5 Mg Tab 0.5 Mg PO Q8H PRN Review of Systems General / Constitutional: No: Fever, Chills Eyes: No: Diploplia, Blurred Vision HENT: No: Headaches, Vertigo Cardiovascular: No: Chest Pain or Discomfort, Palpitations Respiratory: No: Cough, Shortness of Breath Gastrointestinal: No: Vomiting Genitourinary: No: Urgency, Frequency Musculoskeletal: Positive: Myalgias, Arthralgias, Pain Neurologic: Positive: Weakness, Focal Abnormalities, No: Syncope Hematologic/Lymphatic: No: Easy Bruising Physical Exam Narrative GENERAL: Well-developed female SKIN: Focused skin assessment warm/dry. HEAD: Atraumatic. Normocephalic. EYES: Pupils equal and round. No scleral icterus. No injection or drainage. ENT: No nasal bleeding or discharge. Mucous membranes pink and moist. NECK: Trachea midline. No JVD. CARDIOVASCULAR: Regular rate and rhythm. No murmur appreciated. RESPIRATORY: No accessory muscle use. Clear to auscultation. Breath sounds equal bilaterally. GASTROINTESTINAL: Abdomen soft, non-tender, nondistended. Hepatic and splenic margins not palpable. MUSCULOSKELETAL: No obvious deformities. No clubbing. No cyanosis. No edema. She is tender in the right sacroiliac area NEUROLOGICAL: Awake and alert. There is some mild right-sided facial weakness. The right perinatal instructor is weaker than the left. There is no obvious drift. Complains of pain with lifting the right leg and the right leg is weaker than the left. She does occasionally have trouble finding words. Her speech is generally clear. There is a hemisensory deficit involving the right side of the face, the arm and the leg PSYCHIATRIC: Appropriate mood and affect; insight and judgment normal. Data Data Last Documented VS Vital Signs Date Time Temp Pulse Resp B/P Pulse Ox O2 Delivery O2 Flow Rate FiO2 08/01/16 12:58 110/55 08/01/16 12:38 72 20 99 Orders Cath For Specimen (08/01/16 12:43) Neuro Checks Q2HX12,Q4H (08/01/16 12:43) Nursing Bedside Swallow Assess .ONCE (08/01/16 12:43) Activity Bed Rest (08/01/16 12:43) Diet Npo (08/01/16 Lunch) Prothrombin Time / Inr (Pt) (08/01/16 12:43) Act Partial Throm Time (Ptt) (08/01/16 12:43) Complete Blood Count With Diff (08/01/16 12:43) Basic Metabolic Panel (Bmp) (08/01/16 12:43) Fibrinogen (08/01/16 12:43) Creatine Kinase (Cpk) (08/01/16 12:43) Troponin I (08/01/16 12:43) Ua Includes Microscopic (08/01/16 12:43) Drug Screen, Random Urine (08/01/16 12:43) Type And Screen (08/01/16 12:43) Ct Brain W/O Iv Contrast(Rout) (08/01/16 ) Electrocardiogram (08/01/16 ) Beta Hcg (Quant/Titer) (08/01/16 12:43) Consult Neurology (08/01/16 12:43) Sodium Chlor 0.9% 1000 Ml Inj (Ns 1000 M (08/01/16 12:43) Blood Glucose (08/01/16 12:43) Ecg Monitoring (08/01/16 12:43) Iv Access Insert/Monitor (08/01/16 12:43) NPO (08/01/16 12:43) Oximetry (08/01/16 12:43) Oxygen Administration (08/01/16 12:43) Resp Oxygen Reynaldo C Titrat 1-4 L (08/01/16 12:43) Cta Brain W Iv Contrast W 3d (08/01/16 12:49) Cta Neck W Iv Contrast W 3d (08/01/16 12:49) Chest, Single Ap (08/01/16 12:56) (Hub Use Only)Inp Phy Cons/Ref (08/01/16 13:10) CKMB (08/01/16 12:30) CKMB% (08/01/16 12:30) Iohexol 350 Inj (Omnipaque 350 Inj) (08/01/16 13:25) Sodium Chlor 0.9% 1000 Ml Inj (Ns 1000 M (08/01/16 13:30) Aspirin (Aspirin) (08/01/16 13:45) Labs Laboratory Tests Test 08/01/16 12:30 White Blood Count 10.0 TH/MM3 Red Blood Count 3.54 MIL/MM3 Hemoglobin 12.0 GM/DL Hematocrit 34.8 % Mean Corpuscular Volume 98.2 FL Mean Corpuscular Hemoglobin 33.8 PG Mean Corpuscular Hemoglobin 34.4 % Concent Red Cell Distribution Width 12.7 % Platelet Count 182 TH/MM3 Mean Platelet Volume 8.3 FL Neutrophils (%) (Auto) 84.3 % Lymphocytes (%) (Auto) 7.6 % Monocytes (%) (Auto) 3.9 % Eosinophils (%) (Auto) 1.9 % Basophils (%) (Auto) 2.3 % Neutrophils # (Auto) 8.4 TH/MM3 Lymphocytes # (Auto) 0.8 TH/MM3 Monocytes # (Auto) 0.4 TH/MM3 Eosinophils # (Auto) 0.2 TH/MM3 Basophils # (Auto) 0.2 TH/MM3 CBC Comment DIFF FINAL Differential Comment Prothrombin Time 10.6 SEC Prothromb Time International 1.0 RATIO Ratio Activated Partial 23.9 SEC Thromboplast Time Sodium Level 142 MEQ/L Potassium Level 3.8 MEQ/L Chloride Level 106 MEQ/L Carbon Dioxide Level 28.0 MEQ/L Anion Gap 8 MEQ/L Blood Urea Nitrogen 32 MG/DL Creatinine 1.70 MG/DL Estimat Glomerular Filtration 34 ML/MIN Rate Random Glucose 128 MG/DL Calcium Level 8.4 MG/DL Total Creatine Kinase 289 U/L Creatine Kinase MB 3.9 NG/ML Creatine Kinase MB % 1.3 % Troponin I LESS THAN 0.02 NG/ML Human Chorionic Gonadotropin, LESS THAN 1 Quant MIU/ML Blood Type B POSITIVE Blood Bank Comment MDM Medical Decision Making Medical Screen Exam Complete: Yes Emergency Medical Condition: Yes Medical Record Reviewed: Yes Differential Diagnosis Differential includes acute stroke, complicated migraine, Narrative Course Initially was thought the patient may qualify for tPA however on more detailed questioning the patient awoke with these symptoms at [address] has been read as negative. CT of the brain is also read as negative. CT of the neck shows asymmetric vertebral arteries without dissection. Carotid arteries are normal bilaterally. Facial be given aspirin. She'll be admitted Diagnosis Primary Impression: CVA (cerebral vascular accident) Qualified Code: I63.9 - Cerebrovascular accident (CVA), unspecified mechanism Jos Coker MD Aug 01, 2016 13:00
[2016-08-01 13:04] LABS: CHLORIDE 106 MEQ/L (98-107); POTASSIUM 3.8 MEQ/L (3.5-5.1); SODIUM (NA) 142 MEQ/L (136-145)
[2016-08-01 13:07] LABS: ANION GAP 8 MEQ/L (5-15); BLOOD UREA NITROGEN 32 MG/DL (7-18)
--- NOTE | 2016-08-01 13:07 | RADHPO ---
EXAM DATE/TIME: 08/01/2016 12:45 [facility] COMPARISON: CT BRAIN W/O CONTRAST, December 25, 2013, 5:45. INDICATIONS : Stroke alert. Bilateral extremity numbness and difficulty expressing words. RADIATION DOSE: CTDIvol (mGy) MEDICAL HISTORY : None SURGICAL HISTORY : Tubal ligation. ENCOUNTER: Initial ACUITY: 1 day PAIN SCALE: 0/10 LOCATION: cranial TECHNIQUE: Multiple contiguous axial images were obtained of the head. Using automated exposure control and adj ustment of the mA and/or kV according to patient size, radiation dose was kept as low as reasonably a chievable to obtain optimal diagnostic quality images. FINDINGS: CEREBRUM: The ventricles are normal for age. No evidence of midline shift, mass lesion, hemorrhage or acute in farction. No extra-axial fluid collections are seen. POSTERIOR FOSSA: The cerebellum and brainstem are intact. The 4th ventricle is midline. The cerebellopontine angle i s unremarkable. EXTRACRANIAL: The visualized portion of the orbits is intact. SKULL: The calvaria is intact. No evidence of skull fracture. CONCLUSION: 1. No acute intracanal abnormality. 2. Aspect score of 10/10. Dawit Quezada MD on August 01, 2016 at 13:02 Board Certified Radiologist. This report was verified electronically.
[2016-08-01 13:09] LABS: APTT (PATIENT) 23.9 SEC (24.3-30.1); PROTHROMBIN TIME - PATIENT 10.6 SEC (9.8-11.6)
[2016-08-01 13:10] LABS: GLOMERULAR FILTRATION RATE 34 ML/MIN (>89)
[2016-08-01 13:14] LABS: CREATINE KINASE 289 U/L (26-192)
[2016-08-01 13:15] LABS: BETA HCG QUANT LESS THAN 1 MIU/ML (0-5)
--- NOTE | 2016-08-01 13:18 | RADHPO ---
EXAM DATE/TIME: 08/01/2016 12:45 [facility] COMPARISON: No previous studies available for comparison. INDICATIONS : Stroke alert. Bilateral extremity numbness and difficulty expressing words. IV CONTRAST: 85 cc Omnipaque 350 (iohexol) IV ; Cumulative dose for multiple exams. RADIATION DOSE: 43.04 CTDIvol (mGy) ; Combined studies MEDICAL HISTORY : None SURGICAL HISTORY : Tubal ligation. ENCOUNTER: Initial ACUITY: 1 day PAIN SCALE: 0/10 LOCATION: cranial TECHNIQUE: Volumetric scanning was performed using a multi-row detector CT scanner. The data was post processed with a variety of visualization algorithms including full volume maximum intensity pr ojection, multi-planar sliding thin slab reformation, curved planar reformation, and surface renderin g techniques. Using automated exposure control and adjustment of the mA and/or kV according to patie nt size, radiation dose was kept as low as reasonably achievable to obtain optimal diagnostic quality images. FINDINGS: There is excellent visualization of the major intracranial arteries out to the second-order branch ve ssels. There is no evidence for aneurysm, vessel truncation or stenosis, and no evidence for vascula r malformation. Evaluation of the brain demonstrates no evidence for intra-or extra axial fluid collections or gross focal mass. Ventricles are oval in size and a line. Basilar cisterns are maintained. Brainstem and po sterior fossa structures are grossly unremarkable. CONCLUSION: 1. Unremarkable CTA examination without evidence for large vessel occlusion, aneurysm, or vascular ma lformation. Dawit Quezada MD on August 01, 2016 at 13:10 Board Certified Radiologist. This report was verified electronically.
--- NOTE | 2016-08-01 13:23 | RADHPO ---
EXAM DATE/TIME: 08/01/2016 13:14 [facility] COMPARISON: CHEST SINGLE AP, July 04, 2016, 18:56. INDICATIONS : Stroke alert, right side neck area pain MEDICAL HISTORY : None. SURGICAL HISTORY : None. ENCOUNTER: Initial ACUITY: 1 day PAIN SCORE: 8/10 LOCATION: Bilateral chest FINDINGS: Lungs are hypo-aerated which accentuates the interstitial markings. No definite focal pleural or pare nchymal opacities. Cardiomediastinal contours are within normal limits for degree of lung expansion. Bony thorax is intact. CONCLUSION: 1. Lower lung volumes without acute cardiopulmonary disease. Dawit Quezada MD on August 01, 2016 at 13:20 Board Certified Radiologist. This report was verified electronically.
[2016-08-01] MEDS ORDERED: IOHEXOL 350 MG/ML 10 ML VIAL (for RAD DIAG) IV ONE (13:25)
[2016-08-01 13:26] LABS: CKMB 3.9 NG/ML (0.5-3.6)
--- NOTE | 2016-08-01 13:40 | RADHPO ---
EXAM DATE/TIME: 08/01/2016 12:45 [facility] COMPARISON: No previous studies available for comparison. INDICATIONS : Stroke alert. Bilateral extremity numbness and difficulty expressing words. IV CONTRAST: 85 cc Omnipaque 350 (iohexol) IV ; Cumulative dose for multiple exams. RADIATION DOSE: 43.04 CTDIvol (mGy) ; Combined studies MEDICAL HISTORY : None SURGICAL HISTORY : Tubal ligation. ENCOUNTER: Initial ACUITY: 1 day PAIN SCALE: 0/10 LOCATION: neck Elevated flow velocities and ICA/CCA ratios have been found to correlate with increased degrees of vessel stenosis, calculated as percentage of diameter relative to a normal segment of distal ICA/CCA. TECHNIQUE: Volumetric scanning was performed using a multirow detector CT scanner. The data was post processed with a variety of visualization algorithms including full-volume maximum intensity projection, multip lanar sliding thin-slab reformation, curved-planar reformation, and surface-rendering techniques. Us ing automated exposure control and adjustment of the mA and/or kV according to patient size, radiatio n dose was kept as low as reasonably achievable to obtain optimal diagnostic quality images. FINDINGS: AORTIC ARCH: There is a three-vessel origin of the great vessels from the aorta. No evidence of ostial narrowing. RIGHT CAROTID: The common carotid artery is intact. The carotid bulb has a normal configuration without ulceration o r narrowing. The internal carotid artery lumen is smooth without stenosis. The external carotid lora ry is intact. LEFT CAROTID: The common carotid artery is intact. The carotid bulb has a normal configuration without ulceration or narrowing. The internal carotid artery lumen is smooth without stenosis. The external carotid ar yaritza is intact. VERTEBRALS: Asymmetrical vertebral arteries with a dominant left vertebral artery. The right vertebral artery is diffusely small in caliber. No evidence for dissection. No stenotic lesions are seen. MISCELLANEOUS: The jugular veins are patent. Scattered subcentimeter cervical nodes bilaterally. No significant mass . Visualized lung apices are clear. Thyroid appears unremarkable by CT. CONCLUSION: 1. Asymmetric vertebral arteries, dominant left vertebral artery, without evidence for dissection. Th e 2. Normal carotid arteries bilaterally. No hemodynamically significant stenosis or dissection. Dawit Quzeada MD on August 01, 2016 at 13:32 Board Certified Radiologist. This report was verified electronically.
[2016-08-01] MEDS ORDERED: ASPIRIN 325 MG TAB PO ONE (13:45)
[2016-08-01 14:00] LABS: BLOOD, URINE NEG (NEG); GLUCOSE,URINE NEG (NEG); KETONE, URINE NEG (NEG); NITRITE,URINE NEG (NEG)
[2016-08-01] MEDS ORDERED: SODIUM CHLORIDE 0.9% FLUSH 5 ML FLUSH IV FLUSH PRN (14:00)
[2016-08-01] MEDS ORDERED: GLUCAGON 1 MG/ML VIAL OTHER PRN (14:00)
[2016-08-01] MEDS ORDERED: DEXTROSE 50% IN WATER 50 ML VIAL(D50) IV PUSH PRN (14:00)
[2016-08-01 14:07] LABS: AMPHETAMINE, URINE NEG (NEG); BARBITURATES, URINE NEG (NEG)
--- NOTE | 2016-08-01 14:07 | MB ---
cc: JHONY WILLIS M.D. DATE OF CONSULTATION: 08/01/2016. REASON FOR CONSULTATION: Stroke alert. HISTORY OF PRESENT ILLNESS: This is a 40-year-old woman who states she woke up with right-sided numbness from the head down to her leg accompanied by pain in her legs and back. Questionable trouble speaking, Unfortunately she woke up with these symptoms so she is not a candidate for tPA. She sees Dr. Elkins for her medical neurological issues. She has been having chronic headaches for a number of years, restless leg syndrome, fibromyalgia, hypertension, rheumatoid arthritis. Her data specialist is Dr. Powell. She also states during this event she had trouble swallowing. PAST SURGICAL HISTORY: Surgical history of: 1. Gastric bypass. 2. Cholecystectomy. 3. Tubal ligation laparoscopically. SOCIAL HISTORY: Uses marijuana. She has medical marijuana from [place]. No alcohol and no tobacco. ALLERGIES: LEVAQUIN. MEDICATIONS: Reported medicines are: 1. Fluoxetine. 2. Lunesta. 3. Trazodone. 4. Amlodipine. 5. Losartan. 6. Hydrochlorothiazide. 7. Famotidine. 8. Zosyn. 9. Adderall. 10. Montelukast. 11. Baclofen. 12. Omeprazole. 13. Metoprolol. 14. Meloxicam. 15. Gabapentin. 16. Fluticasone nasal spray. 17. ProAir. 18. Requip. 19. Vicodin. 20. Alprazolam. She also has a history of restless syndrome dome. PHYSICAL EXAMINATION: VITAL SIGNS: On exam, her vitals are temperature 98.4, pulse 72, respiratory rate 20, blood pressure 110/55. NECK: Her neck is supple. No bruits. HEART: Regular. LUNGS: Clear. NEUROLOGICAL EXAMINATION: She is awake and alert. She is oriented. Speech is not dysarthric or aphasic. She does have a Greek accent. Her pupils are reactive. Visual molina are full. Face looks symmetrical to me. Tongue is midline. She has decreased light touch over V1, V2 and V3 on the right side. Motor-pisano, no drift, no leg lag. Strength is intact in upper and lower extremities, both toes are downgoing. Reflexes are 1+. Sensory again is decreased to light touch temperature over the right side. Gait is withheld. Cerebellar is normal. IMAGING STUDIES: She had a CT of the head: No acute intracranial abnormality. Neck CTA shows asymmetric vertebral arteries, dominant on the left without dissection. Normal carotids bilaterally. Her CTA of the [place] does not show anything unusual. It is normal as well. IMPRESSION: Possible lacunar syndrome with just numbness, sensory symptoms. It could be a thalamic small lacune as well. On looking at her labs, I did review them. She looks a little dehydrated. Her BUN is 32, creatinine 1.70. PLAN: 1. Obtain an MRI. 2. 2-D echocardiogram. 3. Will get an EEG to make sure there is not a seizure-like event since she states a few years while she was in the airport in [place] she had a grand mal seizure. 4. She is on quite a bit of medicine and I do not know which ones we can take off. 5. I would start her at least on a baby aspirin daily. 6. Check a fasting lipid profile. 7. Maintain her on telemetry. 8. Outpatient Holter. 9. Have her follow up post discharge. 10. Permissible hypertension. 11. Have physical therapy and occupational therapy see her. If she is stable, she can go home and have her follow up with her neurologist, Dr. Elkins, for further continuation of care. I will go ahead and order the studies that are needed. She will be at bed rest until tomorrow. Continuation of care as outlined. She is not a candidate for tPA due to waking up with symptoms and only sensory symptoms. MD YASSINE Joe/GILBERTO /1:51 PM /2:00 PM
[2016-08-01 14:08] LABS: COCAINE, URINE NEG (NEG)
[2016-08-01 14:09] LABS: METHOD OF COLLECTION CATH; URINE COLOR YELLOW (YELLW/STRAW)
[2016-08-01 14:10] LABS: RBC, URINE 0-3 /hpf (0-3); WBC, URINE 0-2 /hpf (0-5)
[2016-08-01] MEDS ORDERED: ACETAMINOPHEN/HYDROcodone 325 MG/10 MG TAB PO ONE (14:15)
[2016-08-01] MEDS ORDERED: HYDROmorphone HCL PF 1 MG/ML VIAL IV PUSH ONE (14:15)
[2016-08-01] MEDS ORDERED: ONDANSETRON HCL 4 MG/2 ML VIAL IV PUSH ONE (14:15)
[2016-08-01] MEDS: ENOXAPARIN SODIUM 30 MG/0.3 ML SYRINGE SQ SCH (14:24)
[2016-08-01] MEDS ORDERED: ENALAPRILAT 1.25 MG/ML VIAL IV PRN (15:00)
[2016-08-01] MEDS: INSULIN ASPART SUPPLEMENTAL SCALE SQ SCH ×2 (16:00→21:00)
[2016-08-01] MEDS: HYDROmorphone HCL PF 1 MG/ML VIAL IV PUSH PRN ×2 (16:49→22:30)
[2016-08-01] MEDS: ASPIRIN 300 MG SUPP RECTAL SCH (16:50)
--- NOTE | 2016-08-01 17:13 | HHI.HP ---
[facility] Primary Care Physician Non-Staff Admission Diagnosis ACUTE R HEMISENSORY DEFICIT Diagnoses: (1) CVA (cerebral vascular accident) (2) Hypertension (3) Chest pain (4) Fibromyalgia Chief Complaint: Numbness on right side Travel History International Travel<30 Days: No Contact w/Intl Traveler <30 Da: No Traveled to Known Affected Are: No History of Present Illness The patient is a 40-year-old female with multiple medical problems including fibromyalgia and rheumatoid arthritis. She woke up at about 11:00 this morning with right-sided numbness. This involved the face, arm, and leg. She also reported difficulty finding words. She denies weakness of her extremities. She reports chronic pain related to her rheumatoid arthritis and fibromyalgia. She has had substernal chest pain which is mild and nonradiating. Denies dyspnea. She reports chronic headache, which is unchanged. No new vision changes. Review of Systems Constitutional: DENIES: Fever, Chills, Night Sweats Eyes: DENIES: Blurred vision, Vision loss Ears, nose, mouth, throat: DENIES: Hearing loss Respiratory: DENIES: Cough, Wheezing, Sputum production, Shortness of breath Cardiovascular: COMPLAINS OF: Chest pain, DENIES: Palpitations, Dyspnea on Exertion, Lower Extremity Edema Gastrointestinal: DENIES: Abdominal pain, Constipation, Diarrhea, Nausea, Vomiting Genitourinary: DENIES: Urinary frequency, Urinary incontinence, Urgency, Hematuria, Dysuria, Nocturia Musculoskeletal: DENIES: Joint pain, Muscle aches Integumentary: DENIES: Pruritus, Rash Hematologic/lymphatic: DENIES: Bruising Neurologic: COMPLAINS OF: Headache, Speech Problems Past Family Social History Past Medical History Rheumatoid arthritis Fibromyalgia Asthma Anxiety/depression Hypertension Chronic daily headache Past Surgical History Gastric bypass Cholecystectomy Tubal ligation Exploratory laparoscopy Reported Medications Fluoxetine (Fluoxetine HCl) 60 Mg Tab 30 Mg PO DAILY Lunesta (Eszopiclone) 2 Mg Tab 6 Mg PO HS PRN Trazodone (Trazodone HCl) 100 Mg Tablet 100 Mg PO HS Amlodipine (Amlodipine Besylate) 10 Mg Tab 10 Mg PO DAILY Losartan-Hydrochlorothiazide 100-25 Mg Tab 1 Tab PO DAILY Famotidine 20 Mg Tab 20 Mg PO BID Prazosin (Prazosin HCl) 1 Mg Cap 6 Mg PO HS Adderall (Amphetamine-Dextroamphetamine) 20 Mg Tab 20 Mg PO DAILY Avoid late evening doses. Space doses at least 4 to 6 hours if more than once/day dosing. Montelukast (Montelukast Sodium) 10 Mg Tab 10 Mg PO HS Baclofen 10 Mg Tab 10 Mg PO BID Omeprazole 40 Mg Cap 40 Mg PO DAILY Metoprolol Tartrate 50 Mg Tab 50 Mg PO BID Meloxicam 7.5 Mg Tab 7.5 Mg PO DAILY Gabapentin 300 Mg Cap 900 Mg PO TID Fluticasone Nasal [place] 50 Mcg/Act Naspr 50 Mcg EACH NARE BID 50 mcg/spray Proair Hfa 8.5 GM Inh (Albuterol Sulfate) 90 Mcg/Act Aer 1 Puff INH Q4H PRN 108 mcg/actuation Requip (Ropinirole) 1 Mg Tab 1 Mg PO HS Vicodin Hp (Hydrocodone-Acetaminophen) 10-300 Tab 1 Tab PO Q4H PRN Alprazolam 0.5 Mg Tab 0.5 Mg PO Q8H PRN Allergies: Coded Allergies: Levaquin (Unverified Allergy, Severe, Chest Pain, 08/01/16) Family History Heart disease Stroke Social History Denies alcohol or tobacco use. Uses medical marijuana. Physical Exam Vital Signs Vital Signs Date Time Temp Pulse Resp B/P Pulse Ox O2 Delivery O2 Flow Rate FiO2 08/01/16 16:00 77.6 78 20 98/60 95 08/01/16 15:25 78 18 92/53 99 08/01/16 14:03 80 20 105/55 99 Room Air 08/01/16 13:45 99 08/01/16 13:00 99 21 08/01/16 13:00 95 21 08/01/16 12:58 110/55 08/01/16 12:38 72 20 110/55 99 Physical Exam GENERAL: Obese female in no acute distress. HEENT: Normocephalic, atraumatic. Pupils equal, round and reactive. Extraocular movements intact. No scleral icterus. No injection or drainage. Oropharynx is clear. Mucous membranes are moist. CARDIOVASCULAR: Regular rate and rhythm without murmurs, gallops, or rubs. RESPIRATORY: Clear to auscultation. No wheezes, rales, or rhonchi. Breathing is non-labored. GASTROINTESTINAL: Abdomen soft, non-tender, nondistended. EXTREMITIES: No lower extremity edema. No calf tenderness. PSYCH: Alert and oriented x 3. NEURO: Abnormal sensation on the right side of the face. Otherwise cranial nerves are grossly intact. Laboratory Laboratory Tests Test 08/01/16 08/01/16 12:30 13:50 White Blood Count 10.0 Red Blood Count 3.54 Hemoglobin 12.0 Hematocrit 34.8 Mean Corpuscular Volume 98.2 Mean Corpuscular Hemoglobin 33.8 Mean Corpuscular Hemoglobin 34.4 Concent Red Cell Distribution Width 12.7 Platelet Count 182 Mean Platelet Volume 8.3 Neutrophils (%) (Auto) 84.3 Lymphocytes (%) (Auto) 7.6 Monocytes (%) (Auto) 3.9 Eosinophils (%) (Auto) 1.9 Basophils (%) (Auto) 2.3 Neutrophils # (Auto) 8.4 Lymphocytes # (Auto) 0.8 Monocytes # (Auto) 0.4 Eosinophils # (Auto) 0.2 Basophils # (Auto) 0.2 CBC Comment DIFF FINAL Differential Comment Prothrombin Time 10.6 Prothromb Time International 1.0 Ratio Activated Partial 23.9 Thromboplast Time Fibrinogen 242 Sodium Level 142 Potassium Level 3.8 Chloride Level 106 Carbon Dioxide Level 28.0 Anion Gap 8 Blood Urea Nitrogen 32 Creatinine 1.70 Estimat Glomerular Filtration 34 Rate Random Glucose 128 Calcium Level 8.4 Total Creatine Kinase 289 Creatine Kinase MB 3.9 Creatine Kinase MB % 1.3 Troponin I LESS THAN 0.02 Human Chorionic Gonadotropin, LESS THAN 1 Quant Blood Type B POSITIVE Antibody Screen NEGATIVE Blood Bank Comment Urine Collection Type CATH Urine Color YELLOW Urine Turbidity CLEAR Urine pH 5.0 Urine Specific [place] 1.020 Urine Protein NEG Urine Glucose (UA) NEG Urine Ketones NEG Urine Occult Blood NEG Urine Nitrite NEG Urine Bilirubin NEG Urine Leukocyte Esterase NEG Urine RBC 0-3 Urine WBC 0-2 Urine Hyaline Casts 25-49 Urine Collection Time 13:50 Urine Opiates Screen POS Urine Barbiturates Screen NEG Urine Amphetamines Screen NEG Urine Benzodiazepines Screen POS Urine Cocaine Screen NEG Urine Cannabinoids Screen POS Result Diagram: 08/01/16 1230 08/01/16 1230 Imaging Last Impressions Chest X-Ray 08/01/16 1256 Signed Impressions: Service Date/Time: Monday, August 01, 2016 13:14 - CONCLUSION: 1. Lower lung volumes without acute cardiopulmonary disease. Dawit Quezada MD Neck CTA 08/01/16 1249 Signed Impressions: Service Date/Time: Monday, August 01, 2016 12:45 - CONCLUSION: 1. Asymmetric vertebral arteries, dominant left vertebral artery, without evidence for dissection. The 2. Normal carotid arteries bilaterally. No hemodynamically significant stenosis or dissection. Dawit Quezada MD Head CTA 08/01/16 1249 Signed Impressions: Service Date/Time: Monday, August 01, 2016 12:45 - CONCLUSION: 1. Unremarkable CTA examination without evidence for large vessel occlusion, aneurysm, or vascular malformation. Dawit Quezada MD Head CT 08/01/16 0000 Signed Impressions: Service Date/Time: Monday, August 01, 2016 12:45 - CONCLUSION: 1. No acute intracanal abnormality. 2. Aspect score of 10/10. Dawit Quezada MD Assessment and Plan Assessment and Plan 1. Acute CVA: Likely lacunar infarct. Appreciate neurology recommendations. Discussed with Dr. Crowder. MRI ordered. EEG ordered to rule out seizure activity. PT/OT/ST. Check 2-D echocardiogram. Continue aspirin. Monitor on telemetry. Allow permissive hypertension. 2. Chronic pain, fibromyalgia, rheumatoid arthritis: Continue pain control. 3. Anxiety/depression: Continue home medications. 4. Hypertension: Hold blood pressure medications and allow permissive hypertension. 5. GERD: Continue famotidine. 6. DVT prophylaxis: SCDs, ANAI child. Problem Qualifiers (1) CVA (cerebral vascular accident): Qualified Code: I63.9 - Cerebrovascular accident (CVA), unspecified mechanism Fredi Harris MD Aug 01, 2016 17:12
[2016-08-01] MEDS ORDERED: ALBUTEROL SULFATE 90 MCG/ACT HFA 8 GM INHALER INH PRN (17:15)
[2016-08-01 18:46] LABS: CREATINE KINASE 470 U/L (26-192)
[2016-08-01 18:59] LABS: CKMB 5.2 NG/ML (0.5-3.6)
[2016-08-01] MEDS: SODIUM CHLORIDE 0.9% FLUSH 5 ML FLUSH IV FLUSH SCH (21:00)
[2016-08-01] MEDS: GABAPENTIN 300 MG CAP PO SCH (22:31)
[2016-08-01] MEDS: ALPRAZolam 0.5 MG TAB PO PRN (22:31)
[2016-08-01] MEDS: traZODone HCL 100 MG TAB PO SCH (22:31)
[2016-08-01] MEDS: BACLOFEN 10 MG TAB PO SCH (22:32)
[2016-08-01] MEDS: ATORVASTATIN 10 MG TAB PO SCH (22:32)
[2016-08-01] MEDS: FAMOTIDINE 20 MG TAB PO SCH (22:32)
[2016-08-01] MEDS: MONTELUKAST SODIUM 10 MG TAB PO SCH (22:32)
[2016-08-01] MEDS: FLUTICASONE PROPIONATE 50 MCG/ACT 16 GM NASAL SPRAY EACH NARE SCH (22:33)
[2016-08-01] MEDS: ESZOPICLONE 3 MG TAB PO PRN (22:42)
[2016-08-02] VITALS (7 sets, daily range): BP systolic 82–135; BP diastolic 50–79; PULSE 72–103; RESP 18–20; TEMP 96.8–98.5; O2SAT 94–98
[2016-08-02] MEDS ORDERED: SODIUM CHLOR 0.9% 1000 ML INJ 1,000 ML IV ONE (01:00)
[2016-08-02 01:43] LABS: CREATINE KINASE 399 U/L (26-192)
[2016-08-02 01:55] LABS: CKMB 3.2 NG/ML (0.5-3.6)
[2016-08-02] MEDS: HYDROmorphone HCL PF 1 MG/ML VIAL IV PUSH PRN ×2 (03:49→08:16)
[2016-08-02 06:42] LABS: AUTOMATED NEUTROPHIL # 9.4 TH/MM3 (1.8-7.7); BASOPHIL % 0.3 % (0.0-2.0); EOSINOPHIL # 0.3 TH/MM3 (0-0.4); EOSINOPHIL % 2.3 % (0.0-4.0); HEMATOCRIT 33.9 % (35.0-46.0); LYMPH % 8.7 % (9.0-44.0); MEAN CELL VOLUME 96.9 FL (80.0-100.0); MEAN CORPUSCULAR HEMOGLOBIN 32.2 PG (27.0-34.0); MEAN CORPUSCULAR HGB CONC 33.2 % (32.0-36.0); MONO % 3.2 % (0.0-8.0); NEUT % 85.5 % (16.0-70.0); PLATELET COUNT 173 TH/MM3 (150-450); RED BLOOD COUNT 3.49 MIL/MM3 (4.00-5.30); RED CELL DISTRIBUTION WIDTH 12.3 % (11.6-17.2); WHITE BLOOD COUNT 11.1 TH/MM3 (4.0-11.0)
[2016-08-02 06:46] LABS: HEMO FLAGS DIFF FINAL
[2016-08-02 06:48] LABS: POTASSIUM 4.1 MEQ/L (3.5-5.1)
[2016-08-02] MEDS: FAMOTIDINE 20 MG TAB PO SCH ×2 (08:04→21:00)
[2016-08-02] MEDS: PANTOPRAZOLE SOD 40 MG DELAYED RELEASE TAB PO SCH (08:04)
[2016-08-02] MEDS: BACLOFEN 10 MG TAB PO SCH ×2 (08:04→21:00)
[2016-08-02] MEDS: FLUoxetine HCL 20 MG CAP PO SCH (08:04)
[2016-08-02] MEDS: GABAPENTIN 300 MG CAP PO SCH ×2 (08:04→21:00)
[2016-08-02] MEDS: ALPRAZolam 0.5 MG TAB PO PRN ×2 (08:14→21:00)
[2016-08-02] MEDS: ASPIRIN 300 MG SUPP RECTAL SCH (09:00)
[2016-08-02] MEDS: SODIUM CHLORIDE 0.9% FLUSH 5 ML FLUSH IV FLUSH SCH ×2 (09:00→21:00)
[2016-08-02] MEDS ORDERED: ASPIRIN 81 MG CHEW TAB PO SCH (09:00)
[2016-08-02 09:37] LABS: HDL CHOLESTEROL 68.7 MG/DL (40.0-60.0)
[2016-08-02] MEDS: FLUTICASONE PROPIONATE 50 MCG/ACT 16 GM NASAL SPRAY EACH NARE SCH ×2 (09:59→21:22)
[2016-08-02] MEDS: DEXTROAMPHETAMINE/AMPHETAMINE 20 MG TAB PO SCH (09:59)
[2016-08-02] MEDS: MELOXICAM 7.5 MG TAB PO SCH (09:59)
[2016-08-02] MEDS: FLUoxetine HCL 10 MG CAP PO SCH (09:59)
[2016-08-02] MEDS ORDERED: PNEUMOCOCCAL POLYVALENT INJ 25 MCG/0.5 ML SYR IM ONE (10:00)
[2016-08-02] MEDS: INSULIN ASPART SUPPLEMENTAL SCALE SQ SCH ×3 (11:00→21:00)
--- NOTE | 2016-08-02 11:42 | HHI.PR ---
Subjective Remarks Follow up CVA. Patient complaining of neck, right shoulder, right lower back, and right leg pain. She states that the pain is worse than her baseline. The pain medications are not really helping at this time. Right-sided numbness has mostly improved, but she still has some numbness of the right upper leg. Objective Vitals Vital Signs Date Time Temp Pulse Resp B/P Pulse Ox O2 Delivery O2 Flow Rate FiO2 08/02/16 08:08 98 21 08/02/16 08:00 98.4 83 20 135/79 94 08/02/16 04:00 98.4 80 18 97/56 96 08/02/16 00:00 96.8 72 18 82/50 96 08/01/16 20:24 98 21 08/01/16 20:00 98.2 88 18 92/50 98 08/01/16 20:00 69 08/01/16 16:00 77.6 78 20 98/60 95 08/01/16 15:25 78 18 92/53 99 08/01/16 14:03 80 20 105/55 99 Room Air 08/01/16 13:45 99 08/01/16 13:00 99 21 08/01/16 13:00 95 21 08/01/16 12:58 110/55 08/01/16 12:38 72 20 110/55 99 I/O 08/01/16 08/01/16 08/01/16 08/02/16 08/02/16 08/02/16 07:00 15:00 23:00 07:00 15:00 23:00 Intake Total 1560 ml Output Total 1800 ml Balance -240 ml Intake IV Total 1560 ml Output Urine Total 1800 ml # Bowel Movements 0 Result Diagram: 08/02/16 0530 08/02/16 0530 Imaging Last Impressions Chest X-Ray 08/01/16 1256 Signed Impressions: Service Date/Time: Monday, August 01, 2016 13:14 - CONCLUSION: 1. Lower lung volumes without acute cardiopulmonary disease. Dawit Quezada MD Neck CTA 08/01/16 1249 Signed Impressions: Service Date/Time: Monday, August 01, 2016 12:45 - CONCLUSION: 1. Asymmetric vertebral arteries, dominant left vertebral artery, without evidence for dissection. The 2. Normal carotid arteries bilaterally. No hemodynamically significant stenosis or dissection. Dawit Quezada MD Head CTA 08/01/16 1249 Signed Impressions: Service Date/Time: Monday, August 01, 2016 12:45 - CONCLUSION: 1. Unremarkable CTA examination without evidence for large vessel occlusion, aneurysm, or vascular malformation. Dawit Quezada MD Head CT 08/01/16 0000 Signed Impressions: Service Date/Time: Monday, August 01, 2016 12:45 - CONCLUSION: 1. No acute intracanal abnormality. 2. Aspect score of 10/10. Dawit Quezada MD Objective Remarks General: Obese female in no acute distress. Heart: Regular rate and rhythm. No murmur. Lungs: Clear to auscultation bilaterally. No wheezes, rales, or rhonchi. Breathing is nonlabored. Abdomen: Soft, nontender, nondistended. Extremities: No lower extremity edema. Psych: Alert and oriented. Procedures None Urinary Catheter: Yes Assessment to: Remove Vascular Central Line Catheter: No A/P Problem List: (1) CVA (cerebral vascular accident) ICD Code: I63.9 Status: Acute (2) Hypertension ICD Code: I10 Status: Chronic (3) Chest pain ICD Code: R07.9 Status: Chronic (4) Fibromyalgia ICD Code: M79.7 Status: Chronic (5) Rheumatoid arthritis ICD Code: M06.9 Status: Chronic Assessment and Plan 1. Acute CVA: Likely lacunar infarct. Appreciate neurology recommendations. Discussed with Dr. Crowder yesterday. MRI pending. EEG ordered to rule out seizure activity. PT/OT/ST. Check 2-D echocardiogram. Continue aspirin. Monitor on telemetry. Allow permissive hypertension. 2. Chronic pain, fibromyalgia, rheumatoid arthritis: Continue pain control. 3. Anxiety/depression: Continue home medications. 4. Hypertension: Hold blood pressure medications and allow permissive hypertension. BP is currently borderline low. 5. GERD: Continue famotidine. 6. DVT prophylaxis: ANAI Coombs. Problem Qualifiers (1) CVA (cerebral vascular accident): Qualified Code: I63.9 - Cerebrovascular accident (CVA), unspecified mechanism Fredi Harris MD Aug 02, 2016 11:41
[2016-08-02] MEDS: ACETAMINOPHEN/HYDROcodone 325 MG/10 MG TAB PO PRN ×3 (11:57→21:00)
--- NOTE | 2016-08-02 12:17 | RADHPO ---
EXAM DATE/TIME: 08/02/2016 11:27 [facility] COMPARISON: No previous studies available for comparison. INDICATIONS : TIA. Right sided weakness and dysphasia. MEDICAL HISTORY : Hypertension. SURGICAL HISTORY : Tubal ligation. Cholecystectomy. ENCOUNTER: Initial ACUITY: 2 day PAIN SCORE: 6/10 LOCATION: Right neck down to right side of lower leg. TECHNIQUE: Multiplanar, multisequence MRI of the brain was performed without contrast. FINDINGS: There is no restricted diffusion evident. There are scattered areas of high signal intensity in the periventricular white matter nonspecific fashion. There are no extraaxial fluid collections apprecia stacey. Ventricular size is appropriate. Posterior fossa is unremarkable, midline fourth ventricle. Portion of orbits and paranasal sinuses visualized unremarkable. CONCLUSION: 1. Periventricular white matter changes, negative for an acute process. Dc Bryant MD FACR on August 02, 2016 at 12:05 Board Certified Radiologist. This report was verified electronically.
--- NOTE | 2016-08-02 13:12 | ECHRPT ---
Indication: CVA/TIA CONCLUSIONS The left ventricular systolic function is normal with an estimated ejection fraction in the range of 55-60%. Mild concentric left ventricular hypertrophy. Normal left ventricular size. BP: / HR: 75 Rhythm: Sinus MEASUREMENTS (Male / Female) Normal Values Technical Quality:Good 2D ECHO LV Diastolic Diameter PLAX 4.0 cm 4.2 - 5.9 / 3.9 - 5.3 cm LV Systolic Diameter PLAX 3.0 cm IVS Diastolic Thickness 1.1 cm 0.6 - 1.0 / 0.6 - 0.9 cm LVPW Diastolic Thickness 1.1 cm 0.6 - 1.0 / 0.6 - 0.9 cm LV Relative Wall Thickness 0.5 LVOT Diameter 1.7 cm M-MODE Aortic Root Diameter MM 2.8 cm LA Systolic Diameter MM 3.4 cm LA Ao Ratio MM 1.2 AV Cusp Separation MM 2.0 cm DOPPLER AV Peak Velocity 144.0 cm/s AV Peak Gradient 8.3 mmHg LVOT Peak Velocity 122.0 cm/s LVOT Peak Gradient 6.0 mmHg AV Area Cont Eq pk 1.9 cm Mitral E Point Velocity 113.0 cm/s Mitral A Point Velocity 67.1 cm/s Mitral E to A Ratio 1.7 LV E' Lateral Velocity 15.1 cm/s Mitral E to LV E' Lateral Ratio 7.5 LV E' Septal Velocity 9.6 cm/s Mitral E to LV E' Septal Ratio 11.8 TR Peak Velocity 288.0 cm/s TR Peak Gradient 33.2 mmHg PV Peak Velocity 114.0 cm/s PV Peak Gradient 5.2 mmHg FINDINGS LEFT VENTRICLE The left ventricular systolic function is normal with an estimated ejection fraction in the range of 55-60%. Mild concentric left ventricular hypertrophy. Normal left ventricular size. Structurally normal tricuspid valve. There is mild to moderate tricuspid valve regurgitation. The estimated pulmonary arterial pressure is 43 mmHg. RIGHT VENTRICLE Normal right ventricular size and systolic function. LEFT ATRIUM The left atrial size is normal. RIGHT ATRIUM The right atrial size is normal. ATRIAL SEPTUM Normal atrial septal thickness without atrial level shunting by limited color doppler interrogation. AORTA The aortic root and proximal ascending aorta are normal in size on limited imaging. MITRAL VALVE Structurally normal mitral valve. No mitral valve stenosis or regurgitation. AORTIC VALVE Trileaflet aortic valve. No aortic valve stenosis or regurgitation. TRICUSPID VALVE Structurally normal tricuspid valve. There is mild to moderate tricuspid valve regurgitation. The estimated pulmonary arterial pressure is 43 mmHg. PULMONARY VALVE The pulmonary valve is not well visualized. VESSELS The inferior vena cava is normal in size. PERICARDIUM No pericardial effusion. Fernando Barlow MD, FACC, [facility] [place] (Electronically Signed) Final Date:02 August 2016 13:10
[2016-08-02] MEDS: ASPIRIN EC 81 MG TABEC PO SCH (13:37)
[2016-08-02] MEDS: ENOXAPARIN SODIUM 30 MG/0.3 ML SYRINGE SQ SCH (13:38)
--- NOTE | 2016-08-02 13:41 | RADHPO ---
EXAM DATE/TIME: 08/02/2016 12:10 [facility] COMPARISON: No previous studies available for comparison. INDICATIONS : Bilateral leg pain with increasing right leg pain since Tuesday. MEDICAL HISTORY : Hypertension. SURGICAL HISTORY : Tubal ligation. Cholecystectomy. Gastric bypass. breat reduction, ganglion cyst removed from wrist ENCOUNTER: Subsequent ACUITY: 2 day PAIN SCORE: 6/10 LOCATION: Right leg TECHNIQUE: Multiplanar multisequence MRI of the lumbar spine was performed without contrast. FINDINGS: The most caudal appearing lumbar vertebra is numbered as L5. VERTEBRAE: Homogeneous signal. Normal alignment. CONUS: Normal level and configuration. T12-L1: The thecal sac has a normal diameter. No evidence of disc bulge or protrusion. The neural foramina are patent bilaterally. L1-L2: The thecal sac has a normal diameter. No evidence of disc bulge or protrusion. The neural foramina are patent bilaterally. L2-L3: The thecal sac has a normal diameter. No evidence of disc bulge or protrusion. The neural foramina are patent bilaterally. L3-L4: The thecal sac has a normal diameter. No evidence of disc bulge or protrusion. The neural foramina are patent bilaterally. L4-L5: The thecal sac has a normal diameter. No evidence of disc bulge or protrusion. The neural foramina are patent bilaterally. There is mild facet hypertrophy. L5-S1: The disc demonstrates decreased signal. There is a moderate focal disc protrusion seen centered at th e left paracentral region extending to the left lateral recess. This is seen in close proximity to th e left S1 nerve root although the left S. root nerve root does not appear deformed or compressed. The neural foramina are patent bilaterally. There is mild facet hypertrophy. CONCLUSION: Moderate left disc protrusion at the L5 disc S1 level. Giorgi Espinal MD on August 02, 2016 at 13:28 Board Certified Radiologist. This report was verified electronically.
[2016-08-02] MEDS: SODIUM CHLOR 0.9% 1000 ML INJ 1,000 ML IV SCH ×2 (13:43→21:00)
--- NOTE | 2016-08-02 15:52 | EKG ---
Date Performed: 08/01/2016 Time Performed: 13:09:41 PTAGE: 40 years EKG: Sinus rhythm NONSPECIFIC T-WAVE ABNORMALITY When compared to previous tracing, sinus rate has increased. [facility] ECG PREVIOUS TRACING : 07/04/2016 18.36 DOCTOR: Aron Weir Interpretating Date/Time 08/02/2016 15:50:39
[2016-08-02 16:41] LABS: HEMOGLOBIN A1b 0.8 %; HEMOGLOBIN Ao 87.3 %; HEMOGLOBIN LA1C 1.2 %; HEMOGLOBIN P3 3.2 %
[2016-08-02] MEDS: ATORVASTATIN 10 MG TAB PO SCH (21:00)
[2016-08-02] MEDS: ESZOPICLONE 3 MG TAB PO PRN (21:00)
[2016-08-02] MEDS: MONTELUKAST SODIUM 10 MG TAB PO SCH (21:00)
[2016-08-02] MEDS: traZODone HCL 100 MG TAB PO SCH (21:00)
[2016-08-03] VITALS: BP 133/77; PULSE 128; RESP 18; TEMP 98.3; O2SAT 96
[2016-08-03 04:00] VITALS: BP 128/70; PULSE 113; RESP 18; TEMP 98.5; O2SAT 98
[2016-08-03] MEDS: ACETAMINOPHEN/HYDROcodone 325 MG/10 MG TAB PO PRN ×2 (06:12→09:43)
[2016-08-03] MEDS: INSULIN ASPART SUPPLEMENTAL SCALE SQ SCH ×2 (06:29→11:00)
[2016-08-03 06:52] LABS: AUTOMATED NEUTROPHIL # 3.6 TH/MM3 (1.8-7.7); BASOPHIL % 0.4 % (0.0-2.0); EOSINOPHIL # 0.2 TH/MM3 (0-0.4); EOSINOPHIL % 3.7 % (0.0-4.0); HEMATOCRIT 32.6 % (35.0-46.0); HEMO FLAGS DIFF FINAL; LYMPH % 21.5 % (9.0-44.0); LYMPHOCYTE # 1.2 TH/MM3 (1.0-4.8); MEAN CORPUSCULAR HEMOGLOBIN 32.3 PG (27.0-34.0); MEAN CORPUSCULAR HGB CONC 33.3 % (32.0-36.0); MONO % 8.3 % (0.0-8.0); NEUT % 66.1 % (16.0-70.0); PLATELET COUNT 196 TH/MM3 (150-450); RED BLOOD COUNT 3.36 MIL/MM3 (4.00-5.30); RED CELL DISTRIBUTION WIDTH 12.2 % (11.6-17.2); WHITE BLOOD COUNT 5.5 TH/MM3 (4.0-11.0)
[2016-08-03 06:58] LABS: POTASSIUM 4.3 MEQ/L (3.5-5.1)
[2016-08-03 07:01] LABS: BICARBONATE 26.6 MEQ/L (21.0-32.0)
[2016-08-03 08:28] VITALS: BP 111/64; PULSE 62; RESP 19; TEMP 97.4; O2SAT 94
[2016-08-03] MEDS: SODIUM CHLORIDE 0.9% FLUSH 5 ML FLUSH IV FLUSH SCH (09:00)
[2016-08-03] MEDS: MELOXICAM 7.5 MG TAB PO SCH (09:38)
[2016-08-03] MEDS: FLUoxetine HCL 20 MG CAP PO SCH (09:38)
[2016-08-03] MEDS: FAMOTIDINE 20 MG TAB PO SCH (09:38)
[2016-08-03] MEDS: DEXTROAMPHETAMINE/AMPHETAMINE 20 MG TAB PO SCH (09:38)
[2016-08-03] MEDS: ASPIRIN EC 81 MG TABEC PO SCH (09:38)
[2016-08-03] MEDS: FLUoxetine HCL 10 MG CAP PO SCH (09:38)
[2016-08-03] MEDS: GABAPENTIN 300 MG CAP PO SCH (09:38)
[2016-08-03] MEDS: PANTOPRAZOLE SOD 40 MG DELAYED RELEASE TAB PO SCH (09:38)
[2016-08-03] MEDS: BACLOFEN 10 MG TAB PO SCH (09:43)
[2016-08-03] MEDS: FLUTICASONE PROPIONATE 50 MCG/ACT 16 GM NASAL SPRAY EACH NARE SCH (09:43)
[2016-08-03] MEDS: SODIUM CHLOR 0.9% 1000 ML INJ 1,000 ML IV SCH (11:26)
--- NOTE | 2016-08-03 11:57 | HHI.PR ---
Subjective Remarks Follow-up stroke alert/TIA/neck radiculopathy/fibromyalgia 08/03/16-patient seen and examined, denies any chest pain or shortness of breath , now only complains of lower extremity numbness but stable. Normotensive. by the bedside Objective Vitals Vital Signs Date Time Temp Pulse Resp B/P Pulse Ox O2 Delivery O2 Flow Rate FiO2 08/03/16 10:46 18 08/03/16 08:28 97.4 62 19 111/64 94 08/03/16 04:00 98.5 113 18 128/70 98 08/03/16 00:00 98.3 128 18 133/77 96 08/02/16 20:00 94 08/02/16 20:00 98.5 103 18 124/70 98 08/02/16 16:00 98.2 84 18 120/74 96 08/02/16 12:00 97.7 90 19 114/71 96 I/O 08/02/16 08/02/16 08/02/16 08/03/16 08/03/16 08/03/16 07:00 15:00 23:00 07:00 15:00 23:00 Intake Total 1560 ml 330 ml 420 ml 400 ml Output Total 1800 ml 950 ml Balance -240 ml -620 ml 420 ml 400 ml Intake Oral 330 ml 420 ml 400 ml IV Total 1560 ml Output Urine Total 1800 ml 950 ml Stool Total 0 ml # Voids 1 2 # Bowel Movements 0 0 0 Result Diagram: 08/03/16 0525 08/03/16 0525 Imaging Last Impressions Lumbar Spine MRI 08/02/16 0000 Signed Impressions: Service Date/Time: Tuesday, August 02, 2016 12:10 - CONCLUSION: Moderate left disc protrusion at the L5 disc S1 level. Giorgi Espinal MD Brain MRI 08/02/16 0000 Signed Impressions: Service Date/Time: Tuesday, August 02, 2016 11:27 - CONCLUSION: 1. Periventricular white matter changes, negative for an acute process. Dc Bryant MD FACR Chest X-Ray 08/01/16 1256 Signed Impressions: Service Date/Time: Monday, August 01, 2016 13:14 - CONCLUSION: 1. Lower lung volumes without acute cardiopulmonary disease. Dawit Quezada MD Neck CTA 08/01/16 1249 Signed Impressions: Service Date/Time: Monday, August 01, 2016 12:45 - CONCLUSION: 1. Asymmetric vertebral arteries, dominant left vertebral artery, without evidence for dissection. The 2. Normal carotid arteries bilaterally. No hemodynamically significant stenosis or dissection. Dawit Quezada MD Head CTA 08/01/16 1249 Signed Impressions: Service Date/Time: Monday, August 01, 2016 12:45 - CONCLUSION: 1. Unremarkable CTA examination without evidence for large vessel occlusion, aneurysm, or vascular malformation. Dawit Quezada MD Head CT 08/01/16 0000 Signed Impressions: Service Date/Time: Monday, August 01, 2016 12:45 - CONCLUSION: 1. No acute intracanal abnormality. 2. Aspect score of 10/10. Dawit Quezada MD Objective Remarks GENERAL: NAD SKIN: Warm and dry. HEAD: Normocephalic. EYES: No scleral icterus. No injection or drainage. NECK: Supple, trachea midline. No JVD or lymphadenopathy. CARDIOVASCULAR: Regular rate and rhythm without murmurs, gallops, or rubs. RESPIRATORY: Breath sounds equal bilaterally. No accessory muscle use. GASTROINTESTINAL: Abdomen soft, non-tender, nondistended. MUSCULOSKELETAL: No cyanosis, or edema. BACK:tender without obvious deformity. No CVA tenderness. Procedures None A/P Problem List: (1) CVA (cerebral vascular accident) ICD Code: I63.9 Status: Acute (2) Hypertension ICD Code: I10 Status: Chronic (3) Chest pain ICD Code: R07.9 Status: Resolved (4) Fibromyalgia ICD Code: M79.7 Status: Chronic (5) Rheumatoid arthritis ICD Code: M06.9 Status: Chronic (6) TIA (transient ischemic attack) ICD Code: G45.9 Status: Resolved Assessment and Plan 40-year-old female with 1.TIA: Brain MRI negative for acute process. CTA brain/head CT all negative. Appreciate input from neurology. EEG with EF 55-60%. Continue baby aspirin, Lipitor. Discontinue permissive hypertension 2. Chronic pain, fibromyalgia, rheumatoid arthritis: Continue pain control. 3. Anxiety/depression: Continue home medications. 4. Hypertension: Patient is currently normotensive on any blood pressure medications; she was being treated for hypotension with IVF hydration 5. GERD: Continue famotidine. 6. DVT prophylaxis: ANAI Coombs. Problem Qualifiers (1) CVA (cerebral vascular accident): Qualified Code: I63.9 - Cerebrovascular accident (CVA), unspecified mechanism Richard Fernandez MD Aug 03, 2016 11:56
[2016-08-03] MEDS ORDERED: LIPI10TA PO (12:07)
[2016-08-03] MEDS ORDERED: ASPI-99 PO (12:07)
--- NOTE | 2016-08-03 12:11 | HHI.DS ---
Discharge Summary Admission Date Aug 01, 2016 at 13:57 Discharge Date: Aug 03, 2016 Admitting Diagnosis ACUTE R HEMISENSORY DEFICIT (1) CVA (cerebral vascular accident) ICD Code: I63.9 (2) Hypertension ICD Code: I10 (3) Chest pain ICD Code: R07.9 (4) Fibromyalgia ICD Code: M79.7 (5) Rheumatoid arthritis ICD Code: M06.9 (6) TIA (transient ischemic attack) ICD Code: G45.9 Procedures None Brief History - From Admission The patient is a 40-year-old female with multiple medical problems including fibromyalgia and rheumatoid arthritis. She woke up at about 11:00 this morning with right-sided numbness. This involved the face, arm, and leg. She also reported difficulty finding words. She denies weakness of her extremities. She reports chronic pain related to her rheumatoid arthritis and fibromyalgia. She has had substernal chest pain which is mild and nonradiating. Denies dyspnea. She reports chronic headache, which is unchanged. No new vision changes. CBC/BMP: 08/03/16 0525 08/03/16 0525 Significant Findings Laboratory Tests Test 08/01/16 08/01/16 08/01/16 08/02/16 12:30 13:50 18:20 01:00 Red Blood Count 3.54 MIL/MM3 (4.00-5.30) Hematocrit 34.8 % (35.0-46.0) Neutrophils (%) (Auto) 84.3 % (16.0-70.0) Lymphocytes (%) (Auto) 7.6 % (9.0-44.0) Basophils (%) (Auto) 2.3 % (0.0-2.0) Neutrophils # (Auto) 8.4 TH/MM3 (1.8-7.7) Lymphocytes # (Auto) 0.8 TH/MM3 (1.0-4.8) Activated Partial 23.9 SEC Thromboplast Time (24.3-30.1) Blood Urea Nitrogen 32 MG/DL (7-18) Creatinine 1.70 MG/DL (0.50-1.00) Estimat Glomerular Filtration 34 ML/MIN (>89) Rate Random Glucose 128 MG/DL (74-106) Calcium Level 8.4 MG/DL (8.5-10.1) Total Creatine Kinase 289 U/L 470 U/L 399 U/L (26-192) (26-192) (26-192) Creatine Kinase MB 3.9 NG/ML 5.2 NG/ML (0.5-3.6) (0.5-3.6) Troponin I LESS THAN 0.02 LESS THAN 0.02 LESS THAN 0.02 NG/ML NG/ML NG/ML (0.02-0.05) (0.02-0.05) (0.02-0.05) Urine Hyaline Casts 25-49 /lpf (RARE) Urine Opiates Screen POS (NEG) Urine Benzodiazepines Screen POS (NEG) Urine Cannabinoids Screen POS (NEG) Test 08/02/16 08/03/16 05:30 05:25 White Blood Count 11.1 TH/MM3 (4.0-11.0) Red Blood Count 3.49 MIL/MM3 3.36 MIL/MM3 (4.00-5.30) (4.00-5.30) Hemoglobin 11.2 GM/DL 10.9 GM/DL (11.6-15.3) (11.6-15.3) Hematocrit 33.9 % 32.6 % (35.0-46.0) (35.0-46.0) Neutrophils (%) (Auto) 85.5 % (16.0-70.0) Lymphocytes (%) (Auto) 8.7 % (9.0-44.0) Neutrophils # (Auto) 9.4 TH/MM3 (1.8-7.7) Chloride Level 110 MEQ/L 109 MEQ/L (98-107) (98-107) Calcium Level 7.7 MG/DL 7.7 MG/DL (8.5-10.1) (8.5-10.1) HDL Cholesterol 68.7 MG/DL (40.0-60.0) Monocytes (%) (Auto) 8.3 % (0.0-8.0) Sodium Level 146 MEQ/L (136-145) Estimat Glomerular Filtration 88 ML/MIN (>89) Rate PE at Discharge GENERAL: NAD SKIN: Warm and dry. HEAD: Normocephalic. EYES: No scleral icterus. No injection or drainage. NECK: Supple, trachea midline. No JVD or lymphadenopathy. CARDIOVASCULAR: Regular rate and rhythm without murmurs, gallops, or rubs. RESPIRATORY: Breath sounds equal bilaterally. No accessory muscle use. GASTROINTESTINAL: Abdomen soft, non-tender, nondistended. MUSCULOSKELETAL: No cyanosis, or edema. BACK:tender without obvious deformity. No CVA tenderness. Hospital Course Patient was admitted to hospital as a stroke alert for which she was started on treatment per stroke protocol with consultation to neurology. However brain MRI and other emergent studies were all negative for any acute processes. She was started on baby aspirin as well as Lipitor and permissive hypertension was allowed. Patient was treated with IV fluid secondary to hypotension with improvement of BP. PT/OT were all consulted. She was continued on treatment for other chronic medical conditions. DVT and GI prophylaxis were provided. Prior to discharge, patient's condition improved and vitals remained stable. Pt Condition on Discharge: Stable Discharge Disposition: Discharge Home Discharge Time: <= 30 minutes Discharge Instructions DIET: Follow Instructions for: Heart Healthy Diet Speech Therapy-Diet Recommends: Regular Activities you can perform: Regular-No Restrictions Follow up Referrals: Neurology PCP Follow-up - 1 Week New Medications: Aspirin DR (Adult Aspirin EC Low Strength) 81 Mg Tabec 81 MG PO DAILY Prevent Blood Clot #30 TAB Atorvastatin (Lipitor) 10 Mg Tab 10 MG PO HS Cholesterol Management #30 TAB Continued Medications: Albuterol 8.5 GM Inh (Proair Hfa 8.5 GM Inh) 90 Mcg/Act Aer 1 PUFF INH Q4H 108 mcg/actuation PRN SHORTNESS OF BREATH #1 Ref 0 INHALER Alprazolam (Alprazolam) 0.5 Mg Tab 0.5 MG PO Q8H PRN ANXIETY Ref 0 TAB Amphetamine-Dextroamphetamine (Adderall) 20 Mg Tab 20 MG PO DAILY Avoid late evening doses. Space doses at least 4 to 6 hours if more than once/day dosing. Hyperactivity Control #30 Ref 0 TAB Baclofen (Baclofen) 10 Mg Tab 10 MG PO BID Muscle Spasm Ref 0 TAB Eszopiclone (Lunesta) 2 Mg Tab 6 MG PO HS PRN INSOMNIA Ref 0 TAB Famotidine (Famotidine) 20 Mg Tab 20 MG PO BID #60 Ref 0 TAB Fluoxetine (Fluoxetine) 60 Mg Tab 30 MG PO DAILY #30 Ref 0 TAB Fluticasone Nasal Mccune (Fluticasone Nasal Mccune) 50 Mcg/Act Naspr 50 MCG EACH NARE BID 50 mcg/spray Allergy Management #1 Ref 0 BOTTLE Gabapentin (Gabapentin) 300 Mg Cap 900 MG PO TID #90 Ref 0 CAP Meloxicam (Meloxicam) 7.5 Mg Tab 7.5 MG PO DAILY Arthritis Pain Ref 0 TAB Montelukast (Montelukast) 10 Mg Tab 10 MG PO HS #30 Ref 0 TAB Omeprazole (Omeprazole) 40 Mg Cap 40 MG PO DAILY #30 Ref 0 CAP Ropinirole (Requip) 1 Mg Tab 1 MG PO HS #30 Ref 0 TAB Trazodone (Trazodone) 100 Mg Tablet 100 MG PO HS Control Depression #30 Ref 0 TAB Richard Fernandez MD Aug 03, 2016 12:11
[2016-08-03 12:21] VITALS: BP 128/78; PULSE 82; RESP 19; TEMP 97.6; O2SAT 95
== END 2016-08-03 13:02 | disposition home or self-care (01) | DRG 69 ==
LOC: PHED 12:37 → PHEDA 13:57 → PH3A 15:41
PROVIDERS: ADMIT Hospitalist; ATTEND Hospitalist
DX: G45.9 Transient cerebral ischemic attack, unspecified (principal); I95.9 Hypotension, unspecified; I10 Essential (primary) hypertension; G25.81 Restless legs syndrome; M06.9 Rheumatoid arthritis, unspecified; J45.909 Unspecified asthma, uncomplicated; M79.7 Fibromyalgia; F41.9 Anxiety disorder, unspecified; F32.9 Major depressive disorder, single episode, unspecified; Z98.84 Bariatric surgery status; K21.9 Gastro-esophageal reflux disease without esophagitis; E66.9 Obesity, unspecified; Z68.37 Body mass index [BMI] 37.0-37.9, adult
CPT/HCPCS: 51702; 70450; 70496; 70498; 70551; 71010; 72148; 80048; 80061; 80307; 81001; 82550; 82552; 82948; 83036; 84484; 84702; 85025; 85384; 85610; 85730; 86850; 86900; 86901; 90732; 93005; 93306; J1170; J1650; J2405; J7030; Q9967